=== PATIENT | female | born 1990 | race American Indian/Alaskan Native ===

== ENCOUNTER 2019-07-02 12:03 | Emergency (ER) | payer OTHER ==
[~2019-07-02] VITALS: Ht 144.8 cm; Wt 44.5 kg
[~2019-07-02 12:03] MED LIST: Bactrim Ds Tab1 EACH PO; KETO10 PO; Norco 5-325 Ta1 EACH PO; ONDA4ODT MM; TAMS.4ER PO
[2019-07-02] MEDS ORDERED: FAMO20 PO (14:46)
[2019-07-02] MEDS ORDERED: PRAMIPEXOLE0.125 M1 PO (14:47)
[2019-07-02 15:40] LABS: Source, Urine Clean Catch
[2019-07-02 15:46] LABS: Bilirubin, Urine Neg (Neg); Blood, Urine 4+ (Neg); Glucose Qualitative, Urine Neg (Neg); Ketones, Urine 1+ (Neg); Leukocyte Esterase, Urine 3+ (Neg); Nitrite, Urine Neg (Neg); Protein, Urine 3+ (Neg); Specific Gravity, Urine 1.015 (1.003-1.022); Urobilinogen, Urine NORM (Normal)
[2019-07-02 15:57] LABS: Appearance, Urine Turbid (Clear); Color, Urine Other (P-Yellow)
[2019-07-02 15:58] LABS: BASOPHILS ABSOLUTE AUTO 0.03 K/mm3 (0.00-0.23); BASOPHILS PERCENT AUTO 0 % (0-2); EOSINOPHILS ABSOLUTE AUTO 0.08 K/mm3 (0.00-0.68); EOSINOPHILS PERCENT AUTO 1 % (0-6); Hematocrit 41.8 % (33.0-51.0); Hemoglobin 13.4 g/dL (11.5-16.0); IMMATURE GRAN ABSOLUTE AUTO 0.01 K/mm3 (0.00-0.10); IMMATURE GRAN PERCENT AUTO 0 % (0-1); LYMPHOCYTES ABSOLUTE AUTO 2.47 K/mm3 (0.84-5.20); LYMPHOCYTES PERCENT AUTO 34 % (21-46); MONOCYTES PERCENT AUTO 6 % (4-13); Mean Corpuscular HGB 29.5 pg (26.0-34.0); Mean Corpuscular HGB Conc 32.1 g/dL (31.5-36.5); Mean Corpuscular Volume 92 fL (80-100); NEUTROPHILS ABSOLUTE AUTO 4.25 K/mm3 (1.96-9.15); NEUTROPHILS PERCENT AUTO 59 % (41-73); Platelet Count 307 K/mm3 (150-400); RDW Coefficient Variation 14.5 % (11.7-14.2); RDW Standard Deviation 49.2 fL (35.1-46.3); Red Blood Cell Count 4.55 M/mm3 (3.80-5.20); White Blood Cell Count 7.24 K/mm3 (4.00-11.30)
[2019-07-02 16:02] LABS: Amorphous Heavy (0-Heavy); Bacteria Many /hpf; Squamous Epithelial Cells Not Seen /hpf (Few); Triple Phosphate Crystals Few /hpf
[2019-07-02 16:11] LABS: Alanine Aminotransfer (ALT/SGP 22 U/L (12-78); Albumin, Blood 3.9 g/dL (3.4-5.0); Alk Phos 64 U/L (50-136); Anion Gap 11 mmol/L (6-16); Aspartate Aminotrans (AST/SGOT 17 U/L (12-37); Bilirubin, Total 0.4 mg/dL (0.1-1.0); Blood Urea Nitrogen 18 mg/dL (8-24); Bun/Creatinine Ratio 31.1 (12.0-20.0); CO2, Blood 18 mmol/L (21-32); Calcium, Blood 9.2 mg/dL (8.5-10.1); Chloride, Blood 111 mmol/L (98-108); Creatinine, Blood 0.58 mg/dL (0.40-1.00); Globulin, Blood 4.1 g/dL (2.2-4.0); Glomerular Filtration Rate >60 (60-); Glucose, Blood 85 mg/dL (70-99); Potassium, Blood 4.3 mmol/L (3.5-5.5); Sodium, Blood 140 mmol/L (136-145)
[2019-07-02] MEDS ORDERED: Toradol10 MG PO (16:52)
== END 2019-07-02 17:04 | disposition home or self-care (01) ==
LOC: ER 12:03
PROVIDERS: Physician Assistant
DX: R10.9 Unspecified abdominal pain (principal); G80.9 Cerebral palsy, unspecified; Z87.442 Personal history of urinary calculi; Z79.899 Other long term (current) drug therapy
CPT/HCPCS: 36415; 80053; 81001; 81025; 83690; 85025; 87086; 99284

== ENCOUNTER 2019-07-14 12:20 | Emergency (ER) | payer OTHER ==
[~2019-07-14] VITALS: Wt 43.1 kg
[~2019-07-14 12:20] MED LIST changes: +FAMO20 PO; +PRAMIPEXOLE0.125 M1 PO; +Toradol10 MG PO
[2019-07-14 12:51] LABS: BASOPHILS ABSOLUTE AUTO 0.02 K/mm3 (0.00-0.23); BASOPHILS PERCENT AUTO 0 % (0-2); EOSINOPHILS ABSOLUTE AUTO 0.08 K/mm3 (0.00-0.68); EOSINOPHILS PERCENT AUTO 1 % (0-6); Hematocrit 42.1 % (33.0-51.0); Hemoglobin 14.1 g/dL (11.5-16.0); IMMATURE GRAN ABSOLUTE AUTO 0.03 K/mm3 (0.00-0.10); IMMATURE GRAN PERCENT AUTO 0 % (0-1); LYMPHOCYTES ABSOLUTE AUTO 3.22 K/mm3 (0.84-5.20); LYMPHOCYTES PERCENT AUTO 38 % (21-46); MONOCYTES ABSOLUTE AUTO 0.63 K/mm3 (0.16-1.47); MONOCYTES PERCENT AUTO 8 % (4-13); Mean Corpuscular HGB 30.3 pg (26.0-34.0); Mean Corpuscular HGB Conc 33.5 g/dL (31.5-36.5); Mean Corpuscular Volume 90 fL (80-100); NEUTROPHILS PERCENT AUTO 53 % (41-73); Platelet Count 367 K/mm3 (150-400); RDW Coefficient Variation 13.9 % (11.7-14.2); RDW Standard Deviation 46.2 fL (35.1-46.3); Red Blood Cell Count 4.66 M/mm3 (3.80-5.20); White Blood Cell Count 8.38 K/mm3 (4.00-11.30)
[2019-07-14 13:18] LABS: Alanine Aminotransfer (ALT/SGP 20 U/L (12-78); Albumin, Blood 3.9 g/dL (3.4-5.0); Alk Phos 66 U/L (50-136); Anion Gap 7 mmol/L (6-16); Aspartate Aminotrans (AST/SGOT 12 U/L (12-37); Bilirubin, Total 0.7 mg/dL (0.1-1.0); Blood Urea Nitrogen 15 mg/dL (8-24); Bun/Creatinine Ratio 25.4 (12.0-20.0); CO2, Blood 23 mmol/L (21-32); Calcium, Blood 9.2 mg/dL (8.5-10.1); Chloride, Blood 111 mmol/L (98-108); Creatinine, Blood 0.59 mg/dL (0.40-1.00); Globulin, Blood 4.1 g/dL (2.2-4.0); Glomerular Filtration Rate >60 (60-); Glucose, Blood 78 mg/dL (70-99); Potassium, Blood 3.9 mmol/L (3.5-5.5); Sodium, Blood 141 mmol/L (136-145)
[2019-07-14 13:27] LABS: Source, Urine Clean Catch
[2019-07-14 13:36] LABS: Bilirubin, Urine Neg (Neg); Blood, Urine 4+ (Neg); Glucose Qualitative, Urine Neg (Neg); Ketones, Urine 1+ (Neg); Leukocyte Esterase, Urine 3+ (Neg); Nitrite, Urine Neg (Neg); Protein, Urine 3+ (Neg); Urobilinogen, Urine NORM (Normal)
[2019-07-14 13:42] LABS: Appearance, Urine Turbid (Clear); Color, Urine Amber (P-Yellow)
[2019-07-14 13:50] LABS: Amorphous Heavy (0-Heavy); Bacteria Mod /hpf; Red Blood Cells, Urine TNTC /hpf (0-2); Squamous Epithelial Cells Rare /hpf (Few); White Blood Cells, Urine 25-50 /hpf (0-5)
[2019-07-14 13:51] LABS: Triple Phosphate Crystals Few /hpf
[2019-07-14] MEDS ORDERED: Norco 5-325 Ta1 EACH PO (14:57)
[2019-07-14] MEDS ORDERED: ONDA4ODT MM (14:57)
== END 2019-07-14 15:18 | disposition home or self-care (01) ==
LOC: ER 12:20
PROVIDERS: Emergency Medicine
DX: N20.0 Calculus of kidney (principal); G80.9 Cerebral palsy, unspecified; K82.4 Cholesterolosis of gallbladder; Z79.899 Other long term (current) drug therapy
CPT/HCPCS: 36415; 76705; 80053; 81001; 83690; 85025; 87086; 96361; 96374; 99284-25; C9113; J7030

== ENCOUNTER 2020-02-08 16:38 | Inpatient (IN) | payer OTHER ==
[~2020-02-08] VITALS: Ht 152.4 cm; Wt 35.8 kg
[2020-02-08 17:00] LABS: Appearance, Urine Turbid (Clear); Bilirubin, Urine Neg (Neg); Blood, Urine 5+ (Neg); Color, Urine Brown (P-Yellow); Glucose Qualitative, Urine Neg (Neg); Ketones, Urine 1+ (Neg); Leukocyte Esterase, Urine 3+ (Neg); Nitrite, Urine Neg (Neg); Protein, Urine 4+ (Neg); Specific Gravity, Urine 1.015 (1.003-1.022); Urobilinogen, Urine 1+ (Normal)
[2020-02-08 17:11] LABS: BASOPHILS ABSOLUTE AUTO 0.03 K/mm3 (0.00-0.23); BASOPHILS PERCENT AUTO 0 % (0-2); EOSINOPHILS ABSOLUTE AUTO 0.03 K/mm3 (0.00-0.68); EOSINOPHILS PERCENT AUTO 0 % (0-6); Hematocrit 36.9 % (33.0-51.0); Hemoglobin 11.7 g/dL (11.5-16.0); IMMATURE GRAN ABSOLUTE AUTO 0.05 K/mm3 (0.00-0.10); IMMATURE GRAN PERCENT AUTO 0 % (0-1); LYMPHOCYTES ABSOLUTE AUTO 1.44 K/mm3 (0.84-5.20); LYMPHOCYTES PERCENT AUTO 12 % (21-46); MONOCYTES ABSOLUTE AUTO 1.19 K/mm3 (0.16-1.47); MONOCYTES PERCENT AUTO 10 % (4-13); Mean Corpuscular HGB 28.4 pg (26.0-34.0); Mean Corpuscular HGB Conc 31.7 g/dL (31.5-36.5); Mean Corpuscular Volume 90 fL (80-100); Mean Platelet Volume 8.7 fL (9.1-12.4); NEUTROPHILS ABSOLUTE AUTO 9.13 K/mm3 (1.96-9.15); NEUTROPHILS PERCENT AUTO 77 % (41-73); Platelet Count 468 K/mm3 (150-400); RDW Coefficient Variation 13.1 % (11.7-14.2); RDW Standard Deviation 43.2 fL (35.1-46.3); Red Blood Cell Count 4.12 M/mm3 (3.80-5.20); White Blood Cell Count 11.87 K/mm3 (4.00-11.30)
[2020-02-08 17:16] LABS: Amorphous Heavy (0-Heavy); Bacteria Many /hpf; Squamous Epithelial Cells Not Seen /hpf (Few); White Blood Cells, Urine 25-50 /hpf (0-5)
[2020-02-08 17:32] LABS: Alanine Aminotransfer (ALT/SGP 24 U/L (12-78); Albumin/Globulin Ratio 0.6 (0.8-1.8); Alk Phos 96 U/L (50-136); Anion Gap 12 mmol/L (6-16); Aspartate Aminotrans (AST/SGOT 19 U/L (12-37); Bilirubin, Total 0.7 mg/dL (0.1-1.0); Blood Urea Nitrogen 22 mg/dL (8-24); Bun/Creatinine Ratio 35.8 (12.0-20.0); CO2, Blood 17 mmol/L (21-32); Calcium, Blood 9.7 mg/dL (8.5-10.1); Chloride, Blood 110 mmol/L (98-108); Creatinine, Blood 0.62 mg/dL (0.40-1.00); Globulin, Blood 4.8 g/dL (2.2-4.0); Glomerular Filtration Rate >60 (60-); Glucose, Blood 84 mg/dL (70-99); Potassium, Blood 3.5 mmol/L (3.5-5.5); Sodium, Blood 139 mmol/L (136-145); Total Protein, Blood 7.8 g/dL (6.4-8.2)
[2020-02-08] MEDS ORDERED: CLONAZEPAM1 MG PO (18:13)
[2020-02-08] MEDS ORDERED: POTA10T PO (18:14)
[2020-02-08] MEDS ORDERED: OMEP20ER PO (18:14)
--- NOTE | 2020-02-09 04:18 | NUR ---
SHIFT SUMMARY PT ARRIVED TO UNIT FROM ED VIA STRETCHER @ 2144. TRANSFERRED FROM STRETCHER TO BED WITH SLIDER SHEET AND 3 STAFF ASSIST. PT IS A&O X4, IS SLOW TO RESPOND BUT IS A GOOD HISTORIAN. CALLS APPROPRIATELY. PT HAS UROSTOMY IN PLACE, BROWN TINGED, TURBID URINE DRAINING. MEDICATED FOR PAIN X2 PER APR. KPAD IN PLACE, PT STATES THAT IT HELPS WITH THE PAIN WELL. PT'S MOTHER'S PHONE NUMBERS ON PT BOARD AND ALSO IN PT PAPER CHART. PT IS LAYING IN BED WITH EYES CLOSED, EVEN AND UNLABORED RESPIRATIONS. BED IN LOWERED POSITION WITH ALARM IN PLACE, SIDE RAILS UP X2 FOR SAFETY. SOFT TOUCH CALL LIGHT AND PERSONAL ITEMS WITH IN REACH. NO APPARENT NEEDS OR DISTRESS AT THIS TIME, WILL CONTINUE TO MONITOR UNTIL REPORT GIVEN TO DAY RN.
[2020-02-09 06:03] LABS: BASOPHILS ABSOLUTE AUTO 0.03 K/mm3 (0.00-0.23); BASOPHILS PERCENT AUTO 0 % (0-2); EOSINOPHILS ABSOLUTE AUTO 0.04 K/mm3 (0.00-0.68); EOSINOPHILS PERCENT AUTO 0 % (0-6); Hematocrit 27.6 % (33.0-51.0); Hemoglobin 8.6 g/dL (11.5-16.0); IMMATURE GRAN ABSOLUTE AUTO 0.04 K/mm3 (0.00-0.10); IMMATURE GRAN PERCENT AUTO 0 % (0-1); LYMPHOCYTES ABSOLUTE AUTO 1.81 K/mm3 (0.84-5.20); LYMPHOCYTES PERCENT AUTO 20 % (21-46); MONOCYTES ABSOLUTE AUTO 0.97 K/mm3 (0.16-1.47); MONOCYTES PERCENT AUTO 11 % (4-13); Mean Corpuscular HGB 28.4 pg (26.0-34.0); Mean Corpuscular HGB Conc 31.2 g/dL (31.5-36.5); Mean Corpuscular Volume 91 fL (80-100); NEUTROPHILS ABSOLUTE AUTO 6.22 K/mm3 (1.96-9.15); NEUTROPHILS PERCENT AUTO 68 % (41-73); Platelet Count 412 K/mm3 (150-400); RDW Coefficient Variation 13.2 % (11.7-14.2); RDW Standard Deviation 43.9 fL (35.1-46.3); Red Blood Cell Count 3.03 M/mm3 (3.80-5.20); White Blood Cell Count 9.11 K/mm3 (4.00-11.30)
[2020-02-09 06:26] LABS: Alanine Aminotransfer (ALT/SGP 20 U/L (12-78); Albumin, Blood 2.1 g/dL (3.4-5.0); Albumin/Globulin Ratio 0.5 (0.8-1.8); Alk Phos 77 U/L (50-136); Anion Gap 10 mmol/L (6-16); Aspartate Aminotrans (AST/SGOT 13 U/L (12-37); Bilirubin, Total 0.6 mg/dL (0.1-1.0); Blood Urea Nitrogen 14 mg/dL (8-24); Bun/Creatinine Ratio 28.3 (12.0-20.0); CO2, Blood 17 mmol/L (21-32); Calcium, Blood 8.4 mg/dL (8.5-10.1); Chloride, Blood 115 mmol/L (98-108); Creatinine, Blood 0.49 mg/dL (0.40-1.00); Globulin, Blood 3.9 g/dL (2.2-4.0); Glomerular Filtration Rate >60 (60-); Glucose, Blood 108 mg/dL (70-99); Potassium, Blood 2.8 mmol/L (3.5-5.5); Sodium, Blood 142 mmol/L (136-145)
[2020-02-09] MEDS ORDERED: PRAM.125 PO (15:34)
--- NOTE | 2020-02-09 17:57 | NUR ---
PATIENT IS A/OX4, VERY PLEASANT AND COOPERATIVE WITH CARE. VSS, ON RA. HX OF CEREBRAL PALSEY, PATIENT IS A Q2 TURN. GROSS MOTOR MOVEMENT OF BUE, DOES REQUIRE ASSISTANCE WITH MEALS. K+ 2.8 THIS AM AND WAS REPLACED. 22G IV TO L AC WNL AND NOW SL. UROSTOMY TO RLQ. PATIENT REPORTING BILATERAL FLANK PAIN, FENTANYL AND TYLENOL GIVEN TO TREAT. SKIN INTACT. SR ON TELE IN THE 90'S. PATIENT CALLS APPROPRIATELY FOR ASSISTANCE.
--- NOTE | 2020-02-10 04:26 | NUR ---
SHIFT SUMMARY MEDICATED PT FOR PAIN X2 THIS SHIFT. OTHERWISE NO OTHER COMPLAINTS. PT SLEPT WELL T/O NIGHT ONLY WAKING UP WHEN PAINFUL. TURN Q2, PT IS ABLE TO VERBALIZE WHEN SHE WOULD LIKE TO BE TURNED. UROSTOMY DRAINING CLOUDY JEFFREY URINE. KPAD IN PLACE TO HELP REDUCE PAIN. PT IS COOPERATIVE WITH CARE. PT IS LAYING IN BED ON R SIDE, WITH EYE MASK ON, EVEN AND UNLABORED RESPIRATIONS. BED IN LOWERED POSITION WITH HOB ELEVATED AND ALARM IN PLACE. SOFT TOUCH CALL LIGHT AND PERSONAL ITEMS WITH IN REACH. NO APPARENT NEEDS OR DISTRESS AT THIS TIME, WILL CONTINUE TO MONITOR UNTIL REPORT GIVEN TO DAY RN.
[2020-02-10 09:40] LABS: Albumin, Blood 2.5 g/dL (3.4-5.0); Anion Gap 9 mmol/L (6-16); Blood Urea Nitrogen 9 mg/dL (8-24); Bun/Creatinine Ratio 18.5 (12.0-20.0); CO2, Blood 17 mmol/L (21-32); Chloride, Blood 116 mmol/L (98-108); Creatinine, Blood 0.49 mg/dL (0.40-1.00); Glomerular Filtration Rate >60 (60-); Glucose, Blood 130 mg/dL (70-99); Magnesium, Blood 1.8 mg/dL (1.6-2.4); Phosphorus, Blood 2.5 mg/dL (2.5-4.9); Potassium, Blood 3.4 mmol/L (3.5-5.5); Sodium, Blood 142 mmol/L (136-145)
--- NOTE | 2020-02-10 17:35 | NUR ---
SHIFT SUMMARY NO ACUTE CHANGES T/O SHIFT, A&OX4, CALM AND COOPERATIVE WITH CARE. PT WAS PLEASANT T/O SHIFT. PT REPORTED PAIN TWICE THIS SHIFT AND WAS TREATED PRN PER EMAR AND SCHEDULED. PAIN TOLERATED WELL WITH ADMINISTERED MEDICATIONS AND USE OF K PAD. PT STARTED ON CIPRO ABX THIS SHIFT, CURRENTLY RUNNING. PT IS ON TELE, REMAINED IN SINUS RHYTHM T/O SHIFT. PT IS BEDREST, SKIN APPEARS C/D/I. SOME REDNESS NOTED ON L SHOULDER, PT REPOSITION OFF OF SHOULDER. UROSTOMY IN PLACE AND INTACT, URINE IS PINK TINGED WITH SOME RESIDUAL. PT IS CURRENTLY IS BEING FED DINNER BY [place] ATTENDANT. CALL LIGHT IS WITHIN REACH.
[2020-02-11 06:04] LABS: Albumin, Blood 2.5 g/dL (3.4-5.0); Anion Gap 9 mmol/L (6-16); Blood Urea Nitrogen 15 mg/dL (8-24); Bun/Creatinine Ratio 27.1 (12.0-20.0); CO2, Blood 19 mmol/L (21-32); Calcium, Blood 9.3 mg/dL (8.5-10.1); Chloride, Blood 113 mmol/L (98-108); Creatinine, Blood 0.55 mg/dL (0.40-1.00); Glomerular Filtration Rate >60 (60-); Glucose, Blood 100 mg/dL (70-99); Phosphorus, Blood 3.8 mg/dL (2.5-4.9); Potassium, Blood 3.4 mmol/L (3.5-5.5); Sodium, Blood 141 mmol/L (136-145)
--- NOTE | 2020-02-11 06:43 | NUR ---
SHIFT SUMMARY PT IS A/O X4. SPEECH SLIGHTLY SLURRED/DIFFICULT TO UNDERSTAND D/T MEDICAL HX. 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 PT HAS BEEN REPOSITIONED Q2/PRN OVERNIGHT. PO INTAKE ENCOURAGE AND PT ASSISTED WITH DRINKING FLUIDS. TAKING PILLS WHOLE. UROSTOMY IN PLACE. URINE HAS BEEN YELLOW WITH PINK TINGE AND CLOUDY. PT REPORTS FLANK PAIN. PAIN MANAGED WITH 50MCG FENTANYL PER ORDERS. PT RESTING IN BED WITH SOFT TOUCH CALL LIGHT IN REACH.
--- NOTE | 2020-02-11 17:42 | NUR ---
SHIFT SUMMARY PT AWAKE DURING SHIFT REPORT. HX OF CEREBRAL PALSY; SPEECH IS MOSTLY GARBLED AND DIFFICULT TO UNDERSTAND. PT WITH UROSTOMY; ADMITTED FOR UTI AND URETERAL STONE. UROSTOMY PATENT AND DRAINING PINK TINGED URINE AT START OF SHIFT. TONIGHT URINE IS TURNING LT CRANBERRY COLORED. DR FAUSTIN IN TO SEE PT THIS AM. NEW ORDERS PLACED. PAIN MEDICATION ADJUSTED. IV SITE TO LAC BECAME DIFFICULT TO INFUSE. NEW IV PG TO VANITA PLACED TODAY. CURRENTLY INFUSING PER EMAR. IVF'S TO ASSIST IN FLUSHING STONE. PT WITH CONTRACTURES TO ALL EXTREMITIES. GROSS MOTOR SKILLS TO BUE'S. PT'S MOM IN THIS AFTERNOON TO VISIT. PT'S MOM BURNED R SIDE OF PT'S NECK WITH CURLING IRON WHILE ATTEMPTING TO CURL PT'S HAIR, PER MELISSA ELENA AT 1500 TODAY. 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 LIKES [employer]. MEDS WHOLE WITH APPLESAUCE. PT AWAKE PLAYING ON COMPUTER AT THIS TIME. NO C/O. PLEASANT AND SMILING. TOUCH CALL LT IN REACH AND ABLE TO USE.
--- NOTE | 2020-02-12 04:45 | NUR ---
SHIFT SUMMARY A/O, ABLE TO MAKE NEEDS KNOWN. COOPERATIVE WITH CARE. CALLS AND ANSWERS QUESTIONS APPROPRIATELY. C/O PAIN/DISCOMFORT RATED 3/10 TO R SIDE; MEDICATED PER EMAR. ALSO REQUESTED SOMETHING FOR SLEEP. MOTHER CALLED EARLIER IN THE DAY TO SPEAK TO RN ABOUT PATIENT NOT GETTING MEDICATION FOR SLEEP. EXPLAINED THAT THIS RN WOULD GIVE HER THE KLONOPIN THAT IS PRN. NO ACUTE CHANGE NOTED OVERNIGHT. CONTINUES TO INFUSE FLUIDS WITHOUT COMPLICATIONS. VSS/AFEBRILE. UROSTOMY DRAINING WITH SEDIMENT NOTED; NO STONES THUS FAR. BED REMAINED IN LOWEST POSITION. CALL LIGHT AND BELONGINGS WITHIN REACH. REPORT TO ONCOMING RN.
[2020-02-12 09:08] LABS: Albumin, Blood 2.6 g/dL (3.4-5.0); Anion Gap 9 mmol/L (6-16); Blood Urea Nitrogen 18 mg/dL (8-24); Bun/Creatinine Ratio 32.4 (12.0-20.0); CO2, Blood 17 mmol/L (21-32); Calcium, Blood 9.1 mg/dL (8.5-10.1); Chloride, Blood 116 mmol/L (98-108); Creatinine, Blood 0.56 mg/dL (0.40-1.00); Glomerular Filtration Rate >60 (60-); Glucose, Blood 118 mg/dL (70-99); Phosphorus, Blood 3.3 mg/dL (2.5-4.9); Potassium, Blood 4.1 mmol/L (3.5-5.5); Sodium, Blood 142 mmol/L (136-145)
[2020-02-12] MEDS ORDERED: ACET500 PO (13:35)
[2020-02-12] MEDS ORDERED: SENN187 PO (13:36)
[2020-02-12] MEDS ORDERED: VISBIOME PROBI1 EACH PO (13:37)
[2020-02-12] MEDS ORDERED: CIPR500 PO (13:38)
[2020-02-12] MEDS ORDERED: IBUP400 (13:39)
--- NOTE | 2020-02-12 18:20 | NUR ---
SHIFT SUMMARY PT RESTING QUIETLY AT START OF SHIFT. WOKE EASILY FOR CARE. PLEASANT AND CO-OP. UROSTOMY OUTPUT YELLOW TODAY. NO LONGER PINK TINGED. DR FAUSTIN IN TO SEE PT. D/C ORDERS DISCUSSED WITH PT. DR FAUSTIN DISCUSSED PLAN OF CARE WITH PT'S MOM. PT ENCOURAGED TO DRINK MORE FLUIDS AT HOME; WATER AND JUICE, NO SPORTS DRINKS. PT ATE AND DRANK WELL FOR BREAKFAST AND LUNCH. GOOD URINE OUTPUT. BED BATH GIVEN BEFORE GETTING DRESSED TO GO HOME. PT'S MOM HERE TO ASSIST WITH D/C AND TX PT TO W/C. PT'S MOM ALSO TX TO VEHICLE TO GO HOME. D/C INSTRUCTIONS DISCUSSED WITH PT'S MOM AT TIME OF D/C. MEDS FAXED TO [facility] PER CHART. PT'S MOM LATER REQUESTED THEM FAXED TO [facility].
[2020-05-12] MEDS ORDERED: CEPH500 PO (17:33)
[2020-05-12] MEDS ORDERED: IBUP600 PO (17:33)
[2020-07-19] MEDS ORDERED: PRAM.125 PO (15:57)
[2020-07-19] MEDS ORDERED: ONDA4 PO (15:58)
[2020-07-19] MEDS ORDERED: Keflex500 MG PO (18:00)
== END 2020-02-12 15:24 | disposition home or self-care (01) | DRG 698 ==
LOC: ER 16:38 → MEDS 21:41
PROVIDERS: Emergency Medicine; Internal Medicine; ADMIT Internal Medicine
DX: T83.598A Infection and inflammatory reaction due to other prosthetic device, implant and graft in urinary system, initial encounter (principal); A41.81 Sepsis due to Enterococcus; N12 Tubulo-interstitial nephritis, not specified as acute or chronic; N13.30 Unspecified hydronephrosis; B96.1 Klebsiella pneumoniae [K. pneumoniae] as the cause of diseases classified elsewhere; K21.9 Gastro-esophageal reflux disease without esophagitis; F41.9 Anxiety disorder, unspecified; E87.6 Hypokalemia; G80.9 Cerebral palsy, unspecified; N20.0 Calculus of kidney; Z99.3 Dependence on wheelchair
CPT/HCPCS: 36415; 74176; 74178; 80053; 80069; 81001; 83605; 83735; 85025; 87077; 87086; 87186; 96365; 96375; 96376; 99285-25; A9270; C1751; J0696; J0744; J1650; J1885; J3010; J3480; J7030; J7050; Q9967

== ENCOUNTER 2020-03-20 12:00 | Inpatient (IN) | payer OTHER ==
[~2020-03-20] VITALS: Ht 147.3 cm; Wt 40.8 kg
[~2020-03-20 12:00] MED LIST changes: +ACET500 PO; +CIPR500 PO; +CLONAZEPAM1 MG PO; +IBUP400; +OMEP20ER PO; +POTA10T PO; +PRAM.125 PO; +SENN187 PO; +VISBIOME PROBI1 EACH PO
[2020-03-20 12:59] LABS: BASOPHILS ABSOLUTE AUTO 0.03 K/mm3 (0.00-0.23); BASOPHILS PERCENT AUTO 0 % (0-2); EOSINOPHILS ABSOLUTE AUTO 0.16 K/mm3 (0.00-0.68); EOSINOPHILS PERCENT AUTO 2 % (0-6); Hematocrit 40.3 % (33.0-51.0); Hemoglobin 13.4 g/dL (11.5-16.0); IMMATURE GRAN ABSOLUTE AUTO 0.02 K/mm3 (0.00-0.10); IMMATURE GRAN PERCENT AUTO 0 % (0-1); LYMPHOCYTES ABSOLUTE AUTO 1.94 K/mm3 (0.84-5.20); LYMPHOCYTES PERCENT AUTO 23 % (21-46); MONOCYTES ABSOLUTE AUTO 0.67 K/mm3 (0.16-1.47); MONOCYTES PERCENT AUTO 8 % (4-13); Mean Corpuscular HGB 28.8 pg (26.0-34.0); Mean Corpuscular HGB Conc 33.3 g/dL (31.5-36.5); Mean Corpuscular Volume 87 fL (80-100); Mean Platelet Volume 8.9 fL (9.1-12.4); NEUTROPHILS ABSOLUTE AUTO 5.65 K/mm3 (1.96-9.15); NEUTROPHILS PERCENT AUTO 67 % (41-73); Platelet Count 329 K/mm3 (150-400); RDW Coefficient Variation 13.4 % (11.7-14.2); RDW Standard Deviation 42.5 fL (35.1-46.3); Red Blood Cell Count 4.66 M/mm3 (3.80-5.20); White Blood Cell Count 8.47 K/mm3 (4.00-11.30)
[2020-03-20 13:20] LABS: Alanine Aminotransfer (ALT/SGP 23 U/L (12-78); Albumin, Blood 3.5 g/dL (3.4-5.0); Alk Phos 76 U/L (50-136); Anion Gap 8 mmol/L (6-16); Aspartate Aminotrans (AST/SGOT 14 U/L (12-37); Bilirubin, Total 0.4 mg/dL (0.1-1.0); Blood Urea Nitrogen 19 mg/dL (8-24); Bun/Creatinine Ratio 29.8 (12.0-20.0); CO2, Blood 21 mmol/L (21-32); Calcium, Blood 8.9 mg/dL (8.5-10.1); Chloride, Blood 112 mmol/L (98-108); Creatinine, Blood 0.64 mg/dL (0.40-1.00); Globulin, Blood 3.6 g/dL (2.2-4.0); Glomerular Filtration Rate >60 (60-); Glucose, Blood 82 mg/dL (70-99); Potassium, Blood 3.9 mmol/L (3.5-5.5); Sodium, Blood 141 mmol/L (136-145); Total Protein, Blood 7.1 g/dL (6.4-8.2)
[2020-03-20 13:21] LABS: Source, Urine Urostomy Bag
[2020-03-20 13:28] LABS: Appearance, Urine Turbid (Clear); Bilirubin, Urine Neg (Neg); Blood, Urine 5+ (Neg); Color, Urine Yellow (P-Yellow); Glucose Qualitative, Urine Neg (Neg); Ketones, Urine Neg (Neg); Leukocyte Esterase, Urine 3+ (Neg); Nitrite, Urine Neg (Neg); Protein, Urine 3+ (Neg); Specific Gravity, Urine 1.015 (1.003-1.022); Urobilinogen, Urine NORM (Normal)
[2020-03-20 13:39] LABS: Bacteria Many /hpf; Red Blood Cells, Urine TNTC /hpf (0-2); Squamous Epithelial Cells Few /hpf (Few); Triple Phosphate Crystals Mod /hpf; White Blood Cells, Urine TNTC /hpf (0-5)
[2020-03-20] MEDS ORDERED: PROM12.5S PR (18:56)
--- NOTE | 2020-03-20 18:58 | NUR ---
ARRIVED TO UNIT AT 1850. ORIENTED TO ROOM, SOFT CALL LIGHT PROVIDED. PATIENT MADE COMFORTABLE.
[2020-03-21 05:34] LABS: BASOPHILS ABSOLUTE AUTO 0.03 K/mm3 (0.00-0.23); BASOPHILS PERCENT AUTO 1 % (0-2); EOSINOPHILS ABSOLUTE AUTO 0.19 K/mm3 (0.00-0.68); EOSINOPHILS PERCENT AUTO 3 % (0-6); Hematocrit 36.6 % (33.0-51.0); Hemoglobin 11.8 g/dL (11.5-16.0); IMMATURE GRAN ABSOLUTE AUTO 0.03 K/mm3 (0.00-0.10); IMMATURE GRAN PERCENT AUTO 1 % (0-1); LYMPHOCYTES ABSOLUTE AUTO 2.76 K/mm3 (0.84-5.20); LYMPHOCYTES PERCENT AUTO 44 % (21-46); MONOCYTES PERCENT AUTO 6 % (4-13); Mean Corpuscular HGB 28.6 pg (26.0-34.0); Mean Corpuscular HGB Conc 32.2 g/dL (31.5-36.5); Mean Corpuscular Volume 89 fL (80-100); Mean Platelet Volume 8.9 fL (9.1-12.4); NEUTROPHILS ABSOLUTE AUTO 2.84 K/mm3 (1.96-9.15); NEUTROPHILS PERCENT AUTO 45 % (41-73); Platelet Count 305 K/mm3 (150-400); RDW Coefficient Variation 13.6 % (11.7-14.2); RDW Standard Deviation 44.1 fL (35.1-46.3); Red Blood Cell Count 4.13 M/mm3 (3.80-5.20); White Blood Cell Count 6.25 K/mm3 (4.00-11.30)
[2020-03-21 05:58] LABS: Influenza A, PCR NEGATIVE (NEGATIVE); Influenza B, PCR NEGATIVE (NEGATIVE); Resp Syncytial Virus, PCR NEGATIVE (NEGATIVE); SARS-Cov-2 (COVID-19) PCR, MMC NEGATIVE (NEGATIVE)
[2020-03-21 06:07] LABS: Anion Gap 6 mmol/L (6-16); Blood Urea Nitrogen 15 mg/dL (8-24); Bun/Creatinine Ratio 27.2 (12.0-20.0); CO2, Blood 21 mmol/L (21-32); Calcium, Blood 8.9 mg/dL (8.5-10.1); Chloride, Blood 116 mmol/L (98-108); Creatinine, Blood 0.55 mg/dL (0.40-1.00); Glomerular Filtration Rate >60 (60-); Glucose, Blood 75 mg/dL (70-99); Potassium, Blood 3.9 mmol/L (3.5-5.5); Sodium, Blood 143 mmol/L (136-145)
--- NOTE | 2020-03-21 06:37 | NUR ---
SHIFT SUMMARY A/O, ABLE TO MAKE NEEDS KNOWN. SPEECH DIFFICULT AT TIMES. COOPERATIVE WITH CARE. CALLS AND ANSWERS QUESTIONS APPROPRIATELY. C/O PAIN/DISCOMFORT TO R FLANK. UROSTOMY DRAINING WELL; MUCOUS SEDIMENT, NO STONES OF YET. PRE-PROCEDURE COVID SCREEN COMPLETED AND NEGATIVE. WILL HAVE A LOOPOGRAM WITH DR. ARZATE THIS DAY. HAS BEEN NPO EXCEPT MEDS. VSS/AFEBRILE AT THIS TIME. NS /c K+ RUNNING WITHOUT COMPLICATIONS TO LFA IV. NO ACUTE CHANGES NOTED OVERNGIHT. APPEARED TO REST. BED REMAINED IN LOWEST POSITION. TOUCH CALL LIGHT IN REACH. CONTINUE WITH CURRENT PLAN OF CARE. REPORT TO ONCOMING RN.
--- NOTE | 2020-03-21 11:31 | NUR ---
[facility]SFERED TO [facility] MOTHER-DENA UPDATED.
--- NOTE | 2020-03-21 17:42 | NUR ---
INTAKE & OUTPUT FOR 03/21/20 0900: UROSTOMY OUTPUT 275ML 1051: UROSTOMY OUTPUT 250ML 1515: UROSTOMY OUTPUT 200ML & R NEPHROSTOMY OUTPUT 120 1700: LATE LUNCH- 100% & 360ML INTAKE 1747: 969ML IV FLUIDS INTAKE
--- NOTE | 2020-03-21 17:47 | NUR ---
SHIFT SUMMARY PT NPO THIS AM IN PREP FOR LOOPOGRAM BY DR. ARZATE. PT TAKEN FOR PROCEDURE & RETURNED WITH A NEPHROSTOMY TUBE TO THE R FLANK. ORDER FROM DR. ARZATE TO FLUSH TUBE TID. FIRST FLUSH COMPLETED AT 1700. DRAINAGE IN NEPHROSTOMY & OSTOMY BURGUNDY IN COLOR. PAIN MED GIVEN ONCE THIS SHIFT. PT & MOTHER UPDATED ON PROCEDURAL FINDINGS. VS REVIEWED. DR. ARZATE ASSISTED WITH COLLECTING A SPECIMEN OF THE NEPHROSTOMY OUTPUT. NO OTHER ACUTE CHANGES IN ASSESSMENT AT THIS TIME. PT ALERT & PLEASANT T/O SHIFT. UP IN BED. AWAITING DINNER. CALL LIGHT IN REACH.
[2020-03-22 05:20] LABS: BASOPHILS ABSOLUTE AUTO 0.02 K/mm3 (0.00-0.23); BASOPHILS PERCENT AUTO 0 % (0-2); EOSINOPHILS ABSOLUTE AUTO 0.07 K/mm3 (0.00-0.68); EOSINOPHILS PERCENT AUTO 1 % (0-6); Hematocrit 39.6 % (33.0-51.0); Hemoglobin 12.7 g/dL (11.5-16.0); IMMATURE GRAN ABSOLUTE AUTO 0.02 K/mm3 (0.00-0.10); IMMATURE GRAN PERCENT AUTO 0 % (0-1); LYMPHOCYTES ABSOLUTE AUTO 1.23 K/mm3 (0.84-5.20); LYMPHOCYTES PERCENT AUTO 15 % (21-46); MONOCYTES PERCENT AUTO 6 % (4-13); Mean Corpuscular HGB 28.3 pg (26.0-34.0); Mean Corpuscular HGB Conc 32.1 g/dL (31.5-36.5); Mean Corpuscular Volume 88 fL (80-100); Mean Platelet Volume 8.8 fL (9.1-12.4); NEUTROPHILS ABSOLUTE AUTO 6.66 K/mm3 (1.96-9.15); NEUTROPHILS PERCENT AUTO 78 % (41-73); Platelet Count 295 K/mm3 (150-400); RDW Coefficient Variation 13.5 % (11.7-14.2); Red Blood Cell Count 4.48 M/mm3 (3.80-5.20)
[2020-03-22 05:44] LABS: Anion Gap 9 mmol/L (6-16); Blood Urea Nitrogen 12 mg/dL (8-24); Bun/Creatinine Ratio 19.1 (12.0-20.0); CO2, Blood 20 mmol/L (21-32); Calcium, Blood 9.4 mg/dL (8.5-10.1); Chloride, Blood 112 mmol/L (98-108); Creatinine, Blood 0.63 mg/dL (0.40-1.00); Glomerular Filtration Rate >60 (60-); Glucose, Blood 95 mg/dL (70-99); Sodium, Blood 141 mmol/L (136-145)
--- NOTE | 2020-03-22 17:01 | NUR ---
PATIENT A/OX4, CHILD LIKE AFFECT. VERY PLEASANT AND COOPERATIVE WITH CARE. UROSTOMY WITH ADEQUATE U/O. NEPHROSTOMY FLUSHED X1 WITH 5ML NS. UROSTOMY BAG CHANGED, PAIN CONTROLLED WITH OXYCODONE AND FENTANYL. VSS, ON RA. LOW GRADE TEMP OF 100.7 THIS AM, MEDICATED X1 WITH TYLENOL. BEDBOUND, TURNING Q2 HOURS. 22G TO R AC WNL AND SL. SKIN INTACT. ABLE TO CALL USING SOFT TOUCH LIGHT.
[2020-03-23 05:25] LABS: BASOPHILS ABSOLUTE AUTO 0.02 K/mm3 (0.00-0.23); BASOPHILS PERCENT AUTO 0 % (0-2); EOSINOPHILS ABSOLUTE AUTO 0.12 K/mm3 (0.00-0.68); EOSINOPHILS PERCENT AUTO 2 % (0-6); Hematocrit 35.6 % (33.0-51.0); Hemoglobin 11.5 g/dL (11.5-16.0); IMMATURE GRAN ABSOLUTE AUTO 0.02 K/mm3 (0.00-0.10); IMMATURE GRAN PERCENT AUTO 0 % (0-1); LYMPHOCYTES ABSOLUTE AUTO 2.11 K/mm3 (0.84-5.20); LYMPHOCYTES PERCENT AUTO 35 % (21-46); MONOCYTES ABSOLUTE AUTO 0.55 K/mm3 (0.16-1.47); MONOCYTES PERCENT AUTO 9 % (4-13); Mean Corpuscular HGB 28.5 pg (26.0-34.0); Mean Corpuscular HGB Conc 32.3 g/dL (31.5-36.5); Mean Corpuscular Volume 88 fL (80-100); Mean Platelet Volume 8.8 fL (9.1-12.4); NEUTROPHILS PERCENT AUTO 53 % (41-73); Platelet Count 233 K/mm3 (150-400); RDW Coefficient Variation 13.3 % (11.7-14.2); RDW Standard Deviation 43.6 fL (35.1-46.3); Red Blood Cell Count 4.03 M/mm3 (3.80-5.20); White Blood Cell Count 6.02 K/mm3 (4.00-11.30)
[2020-03-23 05:39] LABS: Albumin, Blood 2.9 g/dL (3.4-5.0); Anion Gap 5 mmol/L (6-16); Blood Urea Nitrogen 14 mg/dL (8-24); Bun/Creatinine Ratio 25.9 (12.0-20.0); CO2, Blood 23 mmol/L (21-32); Calcium, Blood 8.8 mg/dL (8.5-10.1); Chloride, Blood 112 mmol/L (98-108); Creatinine, Blood 0.54 mg/dL (0.40-1.00); Glomerular Filtration Rate >60 (60-); Glucose, Blood 86 mg/dL (70-99); Phosphorus, Blood 3.1 mg/dL (2.5-4.9); Sodium, Blood 140 mmol/L (136-145)
--- NOTE | 2020-03-23 07:35 | NUR ---
SUMMARY PT HAD CONTINUED PAIN T/O SHIFT. PAIN MANAGED WELL PER EMAR. PT WAS ABLE TO SLEEP T/O SHIFT. PT HAD NO OTHER ISSUES NOTED. CALL LIGHT IN REACH.
--- NOTE | 2020-03-23 18:29 | NUR ---
PATIENT A/OX4, CHILD LIKE AFFECT. VERY PLEASANT AND COOPERATIVE. LOW GRADE TEMP AGAIN THIS SHIFT, TYLENOL GIVEN TO TREAT. PAIN CONTROLLED WITH OXYCODONE AND FENTANYL. PATIENT DENIES ANY NAUSEA, TOLERATING REGULAR DIET. PATIENT DOES REQUIRE ASSISTANCE WITH MEALS DUE TO BUE CONTRACTURES. UROSTOMY WITH ADEQUATE U/O. NEPRHOSTOMY DRAINAGE CLEARING AND DRESSING INTACT. FLUSHED WITH 5ML NS X1 THIS SHIFT. POSSIBLE DC SOON TOMORROW WITH HOME HEALTH.
--- NOTE | 2020-03-24 06:32 | NUR ---
SHIFT SUMMARY PT IS A 29 Y/O FEMALE, ADMITTED FOR HYDRONEPHROSIS WITH A RECENT R NEPHROSTOMY PLACEMENT. PT IS A&O X 3, WITH A HX OF CEREBRAL PALSY AND HAS A CHILD-LIKE AFFECT. SHE WAS MEDICATED 3X FOR R FLANK PAIN WITH PRN OXYCODONE. NO C/O NAUSEA OR SOB. VITAL SIGNS STABLE. PT RECEIVED NS + K @ 100 ML/HR. NO ACUTE CHANGES IN PT CONDITION NOTED DURING THE NIGHT. WILL CONTINUE TO MONITOR AND TREAT PER EMAR UNTIL HAND OFF TO DAY SHIFT RN.
--- NOTE | 2020-03-24 09:56 | NUR ---
CALLED DR ARZATE- DR MARTÍNEZ REQUESTED RN TO CALL DR ARZATE TO UUPDATE HIM ON PT STILL HAVING ELEVATED TEMPS DESPITE BEING ON IV CIPOR. SHOULD WE DO AN ULTRASOUND OR A LEUKOGRAM. LEFT A MESSAGE REQUESTING A CALL BACK.
--- NOTE | 2020-03-24 11:34 | NUR ---
SPOKE TO DR ARZATE- NO LEUKOGRAM AT THIS TIME, ORDER RECIEVED FOR RENAL ULTRASOUND ON THE RIGHT.
--- NOTE | 2020-03-24 16:41 | NUR ---
Spiritual care note: I met with pt and mother at bedside. Mikayla appears frail, but smiles easily and asked for prayer. Mom tells me that Mikayla had been living with her older dtr until recently. Mom admits she feels overwhelmed, but also stresses deep love for her dtr. She asked about getting home health to help and I advised speaking with physician. Untimately, mom would like pt to live at [facility]. I provided theraputic listening and emotional affirmation. Mikayla denied fears/concerns. Prayer for healing facilitated with pt, mom. Encouraged self-care and rest while pt is hospitalized. I will remain available.
--- NOTE | 2020-03-24 19:29 | NUR ---
SHIFT SUMMARY- PT HAS HAD NO ACUTE CHANGE T/O THE DAY. PAIN SEEMS WELL MANAGED. NEPHROSTOMY FLUSHED PER MD ORDER AND IS DRAINING CLEAR YELLOW URINE WITH SEDIMENT, DR GIBBONS RENAL US ORDERED AND COMPLETED TODAY PER PRELIMINARY REPORT NO HYDRONEPHROSIS WAS SEEN. PT STATED THE PAIN SEEMS BETTER THIS EVENING. PRN FENTANYL USED ONCE TODAY. PT IN BED CALL LIGHT IN REACH (SOFT TOUCH), PT CALLS FOR ASSISTANCE. Q2 TURNS FOR PT COMFORT. UROSTOMY IN PLACE PATENT AND DRAINING YELLOW URINE. NO S&S OF DISTRESS NOTED AT THE TIME OF SHIFT CHANGE, BEDSIDE REPORT COMPLETED WITH NIGHT AMITA MONTESINOS.
--- NOTE | 2020-03-25 09:08 | NUR ---
nephrostomy tube flushed with 5 ml nacl without difficulty. patient tolerated well.
[2020-03-25] MEDS ORDERED: DOCU100 PO (11:37)
[2020-03-25] MEDS ORDERED: VISBIOME 112.51 EACH PO (11:39)
[2020-03-25] MEDS ORDERED: ROXICODONE5 MG PO (11:39)
[2020-03-25] MEDS ORDERED: CIPR500 PO (11:40)
--- NOTE | 2020-03-25 14:01 | NUR ---
REVIEW D'C WITH MOM. AWARE MEDS AT [facility]OM[facility]OWN. HAS F/U APPT W/ AND . HAS HARD COPY FOR NARCS. IS FAMILAR ON HOW TO FLUSH NEPHROSTOMY TUBE. GIVEN NACL FLUSHES AND ADVISED IF RUNS OUT OF TID FLUSHES TO TALK TO [facility]OM[facility]. DISCUSS NATURAL METHODS FOR B.M.--EQUAL AMOUNTS PRUNE JUICE WITH APPLE JUICE AND MELT PAT OF BUTTER. GIVE WARMED. PATIENT HAD THIS EARLIER TODAY. ANSWER ALL QUESTIONS. IN OWN W/C TO POV.
[2020-05-12] MEDS ORDERED: CEPH500 PO (17:33)
[2020-05-12] MEDS ORDERED: IBUP600 PO (17:33)
[2020-07-19] MEDS ORDERED: PRAM.125 PO (15:57)
[2020-07-19] MEDS ORDERED: ONDA4 PO (15:58)
[2020-07-19] MEDS ORDERED: Keflex500 MG PO (18:00)
== END 2020-03-25 14:13 | disposition home or self-care (01) | DRG 699 ==
LOC: ER 12:00 → MEDS 17:31
PROVIDERS: Emergency Medicine; Family Medicine; Nurse Practitioner Acute Care; ADMIT Internal Medicine
PROC: 0T9030Z Drainage of Right Kidney with Drainage Device, Percutaneous Approach (ICD-10-PCS; principal; 2020-03-21)
DX: N99.89 Other postprocedural complications and disorders of genitourinary system (principal); N13.1 Hydronephrosis with ureteral stricture, not elsewhere classified; F41.9 Anxiety disorder, unspecified; G80.9 Cerebral palsy, unspecified; I95.9 Hypotension, unspecified; K21.9 Gastro-esophageal reflux disease without esophagitis; N31.9 Neuromuscular dysfunction of bladder, unspecified; Z99.3 Dependence on wheelchair; Z87.442 Personal history of urinary calculi
CPT/HCPCS: 0241U; 36415; 50432; 74177; 76705; 80048; 80053; 80069; 81001; 83605; 85025; 87040; 87086; 96361; 96374-59; 96375; 99152; 99153; 99285-25; A9270; C1729; C1769; C1894; J0744; J2250; J2270; J2405; J3010; J3480; J7030; Q9967

== ENCOUNTER 2020-06-21 10:21 | Emergency (ER) | payer OTHER ==
[~2020-06-21] VITALS: Ht 132.1 cm; Wt 36.3 kg
[~2020-06-21 10:21] MED LIST changes: +CEPH500 PO; +DOCU100 PO; +IBUP600 PO; +PROM12.5S PR; +ROXICODONE5 MG PO; +VISBIOME 112.51 EACH PO
[2020-06-21 11:03] LABS: Source, Urine Clean Catch
[2020-06-21 11:07] LABS: BASOPHILS ABSOLUTE AUTO 0.04 K/mm3 (0.00-0.23); BASOPHILS PERCENT AUTO 0 % (0-2); EOSINOPHILS ABSOLUTE AUTO 0.17 K/mm3 (0.00-0.68); EOSINOPHILS PERCENT AUTO 2 % (0-6); Hematocrit 37.4 % (33.0-51.0); Hemoglobin 12.2 g/dL (11.5-16.0); IMMATURE GRAN ABSOLUTE AUTO 0.06 K/mm3 (0.00-0.10); IMMATURE GRAN PERCENT AUTO 1 % (0-1); LYMPHOCYTES PERCENT AUTO 21 % (21-46); MONOCYTES ABSOLUTE AUTO 0.61 K/mm3 (0.16-1.47); MONOCYTES PERCENT AUTO 7 % (4-13); Mean Corpuscular HGB 29.3 pg (26.0-34.0); Mean Corpuscular HGB Conc 32.6 g/dL (31.5-36.5); Mean Corpuscular Volume 90 fL (80-100); Mean Platelet Volume 9.4 fL (9.1-12.4); NEUTROPHILS ABSOLUTE AUTO 6.27 K/mm3 (1.96-9.15); NEUTROPHILS PERCENT AUTO 69 % (41-73); Platelet Count 351 K/mm3 (150-400); RDW Coefficient Variation 13.4 % (11.7-14.2); RDW Standard Deviation 44.1 fL (35.1-46.3); Red Blood Cell Count 4.16 M/mm3 (3.80-5.20); White Blood Cell Count 9.05 K/mm3 (4.00-11.30)
[2020-06-21 11:08] LABS: Appearance, Urine Cloudy (Clear); Bilirubin, Urine Neg (Neg); Blood, Urine 5+ (Neg); Color, Urine Yellow (P-Yellow); Glucose Qualitative, Urine Neg (Neg); Ketones, Urine 1+ (Neg); Leukocyte Esterase, Urine 3+ (Neg); Nitrite, Urine Neg (Neg); Protein, Urine 3+ (Neg); Urobilinogen, Urine NORM (Normal)
[2020-06-21 11:21] LABS: Amorphous Mod (0-Heavy); Bacteria Mod /hpf; Squamous Epithelial Cells Rare /hpf (Few)
[2020-06-21 11:22] LABS: Red Blood Cells, Urine 50-100 /hpf (0-2)
[2020-06-21 11:22] LABS: Alanine Aminotransfer (ALT/SGP 20 U/L (12-78); Albumin, Blood 3.5 g/dL (3.4-5.0); Albumin/Globulin Ratio 0.9 (0.8-1.8); Alk Phos 76 U/L (50-136); Anion Gap 7 mmol/L (6-16); Aspartate Aminotrans (AST/SGOT 17 U/L (12-37); Bilirubin, Total 0.5 mg/dL (0.1-1.0); Blood Urea Nitrogen 23 mg/dL (8-24); Bun/Creatinine Ratio 35.8 (12.0-20.0); CO2, Blood 22 mmol/L (21-32); Calcium, Blood 9.3 mg/dL (8.5-10.1); Chloride, Blood 110 mmol/L (98-108); Creatinine, Blood 0.64 mg/dL (0.40-1.00); Globulin, Blood 4.1 g/dL (2.2-4.0); Glomerular Filtration Rate >60 (60-); Glucose, Blood 79 mg/dL (70-99); Sodium, Blood 139 mmol/L (136-145); Total Protein, Blood 7.6 g/dL (6.4-8.2)
[2020-07-19] MEDS ORDERED: PRAM.125 PO (15:57)
[2020-07-19] MEDS ORDERED: ONDA4 PO (15:58)
[2020-07-19] MEDS ORDERED: Keflex500 MG PO (18:00)
== END 2020-06-21 15:00 | disposition home or self-care (01) ==
LOC: ER 10:21
PROVIDERS: Emergency Medicine
DX: N13.2 Hydronephrosis with renal and ureteral calculous obstruction (principal); Z79.899 Other long term (current) drug therapy
CPT/HCPCS: 76770; 80053; 81001; 85025; 87077; 87086; 87186; 96374; 96375; 99284-25; A9270; J1885; J3010

== ENCOUNTER 2020-06-25 16:15 | Inpatient (IN) | payer OTHER ==
[~2020-06-25] VITALS: Ht 152.4 cm; Wt 38.7 kg
[2020-06-25 18:06] LABS: BASOPHILS ABSOLUTE AUTO 0.05 K/mm3 (0.00-0.23); BASOPHILS PERCENT AUTO 0 % (0-2); EOSINOPHILS ABSOLUTE AUTO 0.01 K/mm3 (0.00-0.68); EOSINOPHILS PERCENT AUTO 0 % (0-6); Hematocrit 36.7 % (33.0-51.0); Hemoglobin 12.1 g/dL (11.5-16.0); IMMATURE GRAN ABSOLUTE AUTO 0.57 K/mm3 (0.00-0.10); IMMATURE GRAN PERCENT AUTO 2 % (0-1); LYMPHOCYTES ABSOLUTE AUTO 0.73 K/mm3 (0.84-5.20); LYMPHOCYTES PERCENT AUTO 3 % (21-46); MONOCYTES ABSOLUTE AUTO 1.57 K/mm3 (0.16-1.47); MONOCYTES PERCENT AUTO 7 % (4-13); Mean Corpuscular HGB 28.9 pg (26.0-34.0); Mean Corpuscular Volume 88 fL (80-100); Mean Platelet Volume 9.1 fL (9.1-12.4); NEUTROPHILS ABSOLUTE AUTO 20.65 K/mm3 (1.96-9.15); NEUTROPHILS PERCENT AUTO 88 % (41-73); Platelet Count 310 K/mm3 (150-400); RDW Coefficient Variation 13.9 % (11.7-14.2); RDW Standard Deviation 44.5 fL (35.1-46.3); Red Blood Cell Count 4.18 M/mm3 (3.80-5.20); White Blood Cell Count 23.58 K/mm3 (4.00-11.30)
[2020-06-25 18:30] LABS: Alanine Aminotransfer (ALT/SGP 12 U/L (12-78); Albumin, Blood 3.1 g/dL (3.4-5.0); Albumin/Globulin Ratio 0.7 (0.8-1.8); Alk Phos 81 U/L (50-136); Anion Gap 10 mmol/L (6-16); Aspartate Aminotrans (AST/SGOT 5 U/L (12-37); Bilirubin, Total 0.5 mg/dL (0.1-1.0); Blood Urea Nitrogen 26 mg/dL (8-24); Bun/Creatinine Ratio 25.2 (12.0-20.0); CO2, Blood 16 mmol/L (21-32); Calcium, Blood 9.4 mg/dL (8.5-10.1); Chloride, Blood 110 mmol/L (98-108); Creatinine, Blood 1.03 mg/dL (0.40-1.00); Globulin, Blood 4.3 g/dL (2.2-4.0); Glomerular Filtration Rate >60 (60-); Glucose, Blood 157 mg/dL (70-99); Potassium, Blood 3.5 mmol/L (3.5-5.5); Sodium, Blood 136 mmol/L (136-145); Total Protein, Blood 7.4 g/dL (6.4-8.2)
[2020-06-25] MEDS ORDERED: HYDROCODONE-AC1 EA12 PO (18:46)
[2020-06-25 19:15] LABS: Source, Urine Clean Catch
[2020-06-25 19:44] LABS: Bilirubin, Urine Neg (Neg); Blood, Urine 5+ (Neg); Glucose Qualitative, Urine Neg (Neg); Ketones, Urine Neg (Neg); Leukocyte Esterase, Urine 3+ (Neg); Nitrite, Urine Neg (Neg); Protein, Urine 4+ (Neg); Urobilinogen, Urine NORM (Normal)
[2020-06-25 19:46] LABS: Appearance, Urine Cloudy (Clear); Color, Urine Yellow (P-Yellow)
[2020-06-25 19:48] LABS: Red Blood Cells, Urine TNTC /hpf (0-2); Squamous Epithelial Cells Few /hpf (Few); White Blood Cells, Urine TNTC /hpf (0-5)
[2020-06-25 19:49] LABS: Bacteria Many /hpf
[2020-06-26] MEDS ORDERED: MELATONIN5 M1 PO (00:10)
[2020-06-26 05:27] LABS: Anion Gap 9 mmol/L (6-16); Blood Urea Nitrogen 23 mg/dL (8-24); Bun/Creatinine Ratio 27.3 (12.0-20.0); CO2, Blood 13 mmol/L (21-32); Calcium, Blood 8.1 mg/dL (8.5-10.1); Chloride, Blood 118 mmol/L (98-108); Creatinine, Blood 0.84 mg/dL (0.40-1.00); Glomerular Filtration Rate >60 (60-); Glucose, Blood 117 mg/dL (70-99); Potassium, Blood 3.3 mmol/L (3.5-5.5); Sodium, Blood 140 mmol/L (136-145)
[2020-06-26 05:32] LABS: Hematocrit 33.9 % (33.0-51.0); Hemoglobin 11.1 g/dL (11.5-16.0); Mean Corpuscular HGB Conc 32.7 g/dL (31.5-36.5); Mean Corpuscular Volume 89 fL (80-100); Mean Platelet Volume 9.1 fL (9.1-12.4); Platelet Count 322 K/mm3 (150-400); RDW Coefficient Variation 14.4 % (11.7-14.2); RDW Standard Deviation 45.9 fL (35.1-46.3); Red Blood Cell Count 3.83 M/mm3 (3.80-5.20); White Blood Cell Count 26.95 K/mm3 (4.00-11.30)
[2020-06-26 05:33] LABS: BAND PERCENT MAN 26 % (0-8); BASOPHILS PERCENT MAN 0 % (0-2); EOSINOPHILS PERCENT MAN 0 % (0-6); LYMPHOCYTES ABSOLUTE MAN 1.07 K/mm3 (0.84-5.20); LYMPHOCYTES PERCENT MAN 4 % (21-46); MONOCYTES ABSOLUTE MAN 0.53 K/mm3 (0.16-1.47); MONOCYTES PERCENT MAN 2 % (4-13); NEUTROPHILS ABSOLUTE MAN 25.33 K/mm3 (1.96-9.15); SEG NEUTROPHILS PERCENT MAN 68 % (41-73); TOTAL CELLS COUNTED 100
--- NOTE | 2020-06-26 06:20 | NUR ---
END OF SHIFT SUMMARY: PATIENT A/O X4 BUT SLOW TO RESPOND DUE TO CEREBRAL PALSY. PATIENT IN GOOD SPIRITS & COOPERATIVE. PATIENT WAS ON 8 OF LEVO ON ADMISSION TO ICU AND STILL REMAINS AT 7. HOSPITAISLT PLACED A R IJ CENTRAL LINE OVERNIGHT DUE TO BEING UNABLE TO LOWER LEVOPHED MUCH LOWER WHILE GOING THROUGH EJ. LABS PATIENT HAD MINOR ASPIRATION ONCE IN REVERSE TREND FOR LINE PLACEMENT. PATIENT WAS PLACED UPRIGHT AND SUNCTIONED AND TEMPORARILY PLACED O2 4L O2. OXYGEN REMOVED THIS MORNING. PATIENT REPORTS SHE HASN'T ATE SINCE 06/28. PATIENT ATE SOME JELLO.
--- NOTE | 2020-06-26 18:29 | NUR ---
SHIFT SUMMARY PT REMAINS IN LEVO GTT, INFUSING AT 12 MCG/MIN. DISCUSSED POSITIVE BLOOD CULTURES c DR CRAIG. AAYUSH AND VASOPRESSIN ADDED. K REPLACED THIS SHIFT. IVF c 20 MEQ K INFUSING AT THIS TIME. PT C/O INTERMITTANTLY OF FLANK PAIN. IMPROVED c FENTANYL. UROSTOMY TO RLQ, CLOUDY, FOUL SMELLING URINE OUT. STOMA RED, PROLAPSED. NEPHROSTOMY TO RIGHT FLANK, MINIMAL URINE IN DRAINAGE BAG. LUNGS CLEAR. ABD SOFT, NON TENDER. BT X 4. GOOD APPETITE AND PO INTAKE THIS SHIFT. UP TO CHAIR FOR APPROX 1/[address], RATE 120'S. WILL CONTINUE TO MONITOR UNTIL REPORT TO ONCOMING NURSE.
[2020-06-27 03:59] LABS: BASOPHILS ABSOLUTE AUTO 0.03 K/mm3 (0.00-0.23); BASOPHILS PERCENT AUTO 0 % (0-2); EOSINOPHILS ABSOLUTE AUTO 0.01 K/mm3 (0.00-0.68); EOSINOPHILS PERCENT AUTO 0 % (0-6); Hematocrit 28.4 % (33.0-51.0); Hemoglobin 9.6 g/dL (11.5-16.0); IMMATURE GRAN ABSOLUTE AUTO 0.49 K/mm3 (0.00-0.10); IMMATURE GRAN PERCENT AUTO 3 % (0-1); LYMPHOCYTES ABSOLUTE AUTO 1.36 K/mm3 (0.84-5.20); LYMPHOCYTES PERCENT AUTO 7 % (21-46); MONOCYTES PERCENT AUTO 4 % (4-13); Mean Corpuscular HGB 29.2 pg (26.0-34.0); Mean Corpuscular HGB Conc 33.8 g/dL (31.5-36.5); Mean Corpuscular Volume 86 fL (80-100); Mean Platelet Volume 9.1 fL (9.1-12.4); NEUTROPHILS ABSOLUTE AUTO 15.82 K/mm3 (1.96-9.15); NEUTROPHILS PERCENT AUTO 86 % (41-73); Platelet Count 280 K/mm3 (150-400); RDW Coefficient Variation 14.7 % (11.7-14.2); RDW Standard Deviation 47.3 fL (35.1-46.3); Red Blood Cell Count 3.29 M/mm3 (3.80-5.20); White Blood Cell Count 18.41 K/mm3 (4.00-11.30)
[2020-06-27 04:17] LABS: Alanine Aminotransfer (ALT/SGP 11 U/L (12-78); Albumin, Blood 2.2 g/dL (3.4-5.0); Albumin/Globulin Ratio 0.7 (0.8-1.8); Alk Phos 87 U/L (50-136); Anion Gap 8 mmol/L (6-16); Aspartate Aminotrans (AST/SGOT 4 U/L (12-37); Bilirubin, Total 0.5 mg/dL (0.1-1.0); Blood Urea Nitrogen 15 mg/dL (8-24); Bun/Creatinine Ratio 19.5 (12.0-20.0); CO2, Blood 13 mmol/L (21-32); Calcium, Blood 8.4 mg/dL (8.5-10.1); Chloride, Blood 121 mmol/L (98-108); Creatinine, Blood 0.77 mg/dL (0.40-1.00); Globulin, Blood 3.3 g/dL (2.2-4.0); Glomerular Filtration Rate >60 (60-); Glucose, Blood 93 mg/dL (70-99); Sodium, Blood 142 mmol/L (136-145); Total Protein, Blood 5.5 g/dL (6.4-8.2)
--- NOTE | 2020-06-27 06:40 | NUR ---
END OF SHIFT SUMMARY: PATIENT REMAINS A/O X4 AND VERY PLEASANT. PATIENT HAS BEEN NSR/ST 70-110. BP GOAL STILL MAP>65. LEVO AND VASO CONTINUE TO INFUSE. LEVO AT 5 AND VASO 0.04. ATTEMPTED TURNING OFF VASO MID-SHIFT AND I KEPT HAVING TO GO UP ON LEVO SO VASO WAS RESTARTED. UROSTOMY OUTPUT IS GETTING MORE CLEAR AND SHE HAS HAD A LOT OF OUTPUT FROM. NO OUTPUT FROM NEPHROSTOMY. JO HAD A BM THIS MORNING AND LABS WNL.
--- NOTE | 2020-06-27 07:30 | NUR ---
PT A&OX4. CEREBRAL PALSY @ BASELINE-NEUROLOGICALLY AT NEURO BASELINE. PT TEARFUL AND REPORTING 9/10 LEFT FLANK PAIN-MED WITH FENTANYL 50 MCG IVP X 1. PT IS AFEBRILE-ECG SHOWS SR TO ST WITH RATE 90-110'S. MAP TRENDING 60-65 WITH LEVOPHED DRIP @ 5 MCG/MIN AND VASOPRESSIN @ 0.04 UNITS/MIN. LUNGS CLEAR-NO NOTED SOB OR COUGH. PT ABLE TO SWALLOW AM MED WITH A SIP OF WATER WITHOUT DIFFICULTY. SATS 90% ON RA. INCONTINENT OF SMEAR OF BROWN STOOL. SETH CARE DONE AND DRY FLOW PAD CHANGED. PT REQUESTS TO NOT WEAR A "DIAPER." REQUEST GRANTED. NEPHROSTOMY TUBE WITH SCAN AMOUNT OF DARK, YELLOW URINE TO COLLECTION BAG. UROSTOMY WITH 350 CC OF CLOUDY, YELLOW URINE EMPTIED.
--- NOTE | 2020-06-27 09:00 | NUR ---
PT USED THE SOFT TOUCH CALL SYSTEM TO [place] RN AND ASSET PROTECTION ASSISTANT TO BEDSIDE. PT REPORTS HAVING HAD A BM. SETH CARE DONE AND DRY FLOW PAD CHANGED. PT REPOSITIONED TO COMFORT ON LEFT SIDE. GIVEN WARM BLANKETS.
--- NOTE | 2020-06-27 12:00 | NUR ---
PT REPORTS NAUSEA AND IS REFUSING LUNCH AT THIS TIME. MED WITH ZOFRAN 4 MG IVP X 1.
--- NOTE | 2020-06-27 13:30 | NUR ---
ASSUMED CARE RECEIVED REPORT FROM AMITA KNIGHT. PT SLEEPING IN BED COMFORTABLY AT THIS TIME. RIJ INFUSING LEVOPHED AT 3MCG/MIN, VASOPRESSIN 0.04UNITS/HR, AND NS 20MEQ KCL AT 150ML/HR. IV TO RFA SALINE LOCKED. R NEPHROSTOMY TUBE IN PLACE WITH SCANT OUTPUT, TUBE NOT SUTURED IN PLACE. UROSTOMY DRAINAGE BAG C/D/I WITH CLOUDY YELLOW OUTPUT. CONTRACTURES TO L ELBOW, BILAT WRIST, L HAND, ABLE TO MOVE POINTER FINER AND THUMB ON R HAND, UNABLE TO MOVE BILAT LEGS. A&O X4 WHEN AWAKE. ABLE TO COMMUNICATE NEEDS. C/O FLANK PAIN 10/17, MEDICATING WITH 50MCG FENTANYL PER APR. VS STABLE. WILL CONTINUE TO MONITOR.
--- NOTE | 2020-06-27 15:32 | NUR ---
FAMILY UPDATE PT MOTHER DENA AT BEDSIDE. PT IS RESTING QUIETLY INITIALLY, PT TEARFUL WHEN MOTHER AT BEDSIDE. PT MEDICATED FOR FLANK PAIN WITH FENTANYL PRN. PT MOTHER INQUIRING ABOUT CT SCAN RESULTS AND WANTING TO TALK TO A PHYSICIAN ABOUT PT DISEASE PROCESS AND SOURCE OF INFECTION. DR ANDERSON CALLED AND CAME TO BEDSIDE. DR ANDERSON HAD EXTENSIVE CONVERSATION ABOUT DISEASE PROCESS, CT RESULTS, AND PLAN OF CARE. PT MOTHER DENA PROVIDED WITH CONTACT TO MEDICAL RECORDS TO OBTAIN ADDITIONAL CT SCAN INFORMATION. PT RESTING QUIELT AT THIS TIME. WILL CONTINUE TO RACQUEL.
--- NOTE | 2020-06-27 17:50 | NUR ---
SHIFT SUMMARY PT SITTING UP IN BED, EATING DINNER WITH ASSITANCE OF DISPATCHER TUGBOAT. A&OX4, ABLE TO COMMUNICATE NEEDS. UROSTOMY CONTINUES TO PRODUCE YELLOW CLOUDY URINE, APPLIANCE OVERALL C/D/I. R NEPHROSTOMY TUBE CONTINUES TO HAVE SCANT AMOUNT OF DRAINAGE IN BAG, TUBE NOT SECURED BY SUTURES AT THIS TIME. SKIN OVERALL C/D/I, CONTRACTURES TO EXTREMITIES REMAIN. PT CONTINUES TO C/O FLANK PAIN, MEDICATED WITH 50MCG FENTANYL PER MAR PRN. RIJ CONTINUES TO INFUSE LEVOPHED 2MCG/MIN, VASOPRESSIN 0.04UNITS/MIN, AND NS 20MEQ KCL 150ML/HR. IV TO RFA SALINE LOCKED. MOM DENA AT BEDSIDE THIS AFTERNOON. VS STABLE. WILL CONTINUE TO MONITOR.
--- NOTE | 2020-06-27 18:31 | NUR ---
DOCUMENTATION REVIEW ALL ASSESSMENTS AND NOTES REVIEWED FROM THIS SHIFT. I AGREE WITH COMPUTER PROGRAMMER DOCUMENTATION FROM THIS SHIFT.
[2020-06-28 06:12] LABS: BASOPHILS ABSOLUTE AUTO 0.01 K/mm3 (0.00-0.23); BASOPHILS PERCENT AUTO 0 % (0-2); EOSINOPHILS ABSOLUTE AUTO 0.01 K/mm3 (0.00-0.68); EOSINOPHILS PERCENT AUTO 0 % (0-6); Hematocrit 24.3 % (33.0-51.0); Hemoglobin 8.4 g/dL (11.5-16.0); IMMATURE GRAN ABSOLUTE AUTO 0.07 K/mm3 (0.00-0.10); IMMATURE GRAN PERCENT AUTO 1 % (0-1); LYMPHOCYTES ABSOLUTE AUTO 1.19 K/mm3 (0.84-5.20); LYMPHOCYTES PERCENT AUTO 8 % (21-46); MONOCYTES ABSOLUTE AUTO 0.71 K/mm3 (0.16-1.47); MONOCYTES PERCENT AUTO 5 % (4-13); Mean Corpuscular HGB 29.5 pg (26.0-34.0); Mean Corpuscular HGB Conc 34.6 g/dL (31.5-36.5); Mean Corpuscular Volume 85 fL (80-100); Mean Platelet Volume 9.2 fL (9.1-12.4); NEUTROPHILS ABSOLUTE AUTO 12.52 K/mm3 (1.96-9.15); NEUTROPHILS PERCENT AUTO 86 % (41-73); Platelet Count 229 K/mm3 (150-400); RDW Coefficient Variation 15.1 % (11.7-14.2); RDW Standard Deviation 47.3 fL (35.1-46.3); Red Blood Cell Count 2.85 M/mm3 (3.80-5.20); White Blood Cell Count 14.51 K/mm3 (4.00-11.30)
--- NOTE | 2020-06-28 06:32 | NUR ---
END OF SHIFT SUMMARY: PATIENT A/O X4 AND WILL TELL YOU WHAT SHE NEEDS! PATIENT HAS REMAINED IN NSR/ST OVERNIGHT. PATIENT WENT INTO AFIB BUT REMAINED IN 120S ON MONITOR AND IT ONLY LASTED FOR ABOUT 5 MINUTES. PATIENT WENT RIGHT BACK INTO ST BUT HAS REMAINED 110-120S MOST OF THE MORNING. PATIENT HAS BEEN OFF OF LEVO SINCE AUTO WINDER WELL. 2L NC APPLIED WHILE PATIENT SLEEPS DUE TO DESATS OF 87%. PAIN MEDS REQUIRED ALMOST EVERY 2HRS FOR L FLANK PAIN. PATIENT WAS NAUSEOUS THIS MORNING SO ZOFRAN GIVEN. NO EMESIS
[2020-06-28 06:35] LABS: Albumin, Blood 3.1 g/dL (3.4-5.0); Anion Gap 8 mmol/L (6-16); Blood Urea Nitrogen 12 mg/dL (8-24); Bun/Creatinine Ratio 17.3 (12.0-20.0); CO2, Blood 13 mmol/L (21-32); Calcium, Blood 8.3 mg/dL (8.5-10.1); Chloride, Blood 126 mmol/L (98-108); Glomerular Filtration Rate >60 (60-); Glucose, Blood 87 mg/dL (70-99); Phosphorus, Blood 1.3 mg/dL (2.5-4.9); Potassium, Blood 3.1 mmol/L (3.5-5.5); Sodium, Blood 147 mmol/L (136-145); Vancomycin, Trough 11.3 ug/mL (5.0-10.0)
--- NOTE | 2020-06-28 08:00 | NUR ---
PT REMAINS A&OX4. NO NEURO CHANGES. PT AT HER BASELINE. REPORTS 5/10 LEFT FLANK PAIN-MED WITH NORCO PO-SEE EMAR. PT REPORTS INTERMITTENT NAUSEA AND POOR APPETITE. MED WITH ZOFRAN 4 MG IVP PRIOR TO AM MEDS AND BREAKFAST. PT ABLE TO SWALLOW MEDS ONE AT A TIME WITHOUT SIGNS OF ASPIRATION. ECG CONTINUES SR TO ST WITH RATE 90-100'S. TEMP 99.3. LEVOPHED DRIP HAS BEEN OFF SINCE APROX. 0200-SBP TRENDING 90'S AND MAP GREATER THAN 60. LUNGS DIMINISHED IN THE BASES. RESPIRATIONS SHALLOW AND PT INTERMITTENTLY TACHYPNEIC WITH RATE 28-32. ENCOURAGED COUGHING AND DB, BUT VERY WEAK COUGH. SATS 90% ON 2 LITERS NASAL CANULA. UROSTOMY CONTINUES TO DRAIN ADEQUATE AMOUNTS OF CLOUDY, YELLOW URINE. NEPHROSTOMY CONTINUES TO DRAIN ONLY SCANT AMOUNTS OF DARK, YELLOW URINE.
--- NOTE | 2020-06-28 11:11 | NUR ---
PT REPORTS 6/10 LEFT FLANK PAIN. MED WITH FENTANYL 50 MCG IVP X 1-SEE EMAR. NO OTHER ACUTE CHANGES. REPORT PHONED TO AMITA MARQUEZ IN PREP TO TRANSFER PT TO PCU 11. PT MOTHER DENA UPDATED TO PT STATUS CHANGE AND PLAN OF CARE. PT MOTHER MADE AWARE THAT PT IS TRANSFERING TO PCU 11.
--- NOTE | 2020-06-28 15:14 | NUR ---
1422: THIS RN ENTERED ROOM NOTING THAT THE SPO2 MONITOR WAS ALARMING. SPO2 READING 86%. PT APPEARS TO BE IN PAIN, RN NOTES PT IS GRMACING AND LEANING TOWARD HER RIGHT SIDE. PT STATES THAT SHE IS IN 9/10 PAIN ON HER RIGHT SIDE. 1426: NORCO ADMINSTERED PER EMAR. SP02 SATS CONTINUE TO BE IN THE 80s. OXYGEN PER NC INCREASED TO 5L. PT IS REPOSITIONED IN BED, HOB>30 DEGREES. THIS RN AT BEDSIDE CONTINUING TO MONITOR. 1430: SP02 CONTINUES TO BE IN THE 80s, HR 100, BP 99/47, TEMP 98.8, RR 30. PT'S MOTHER ARRIVES TO ROOM TO VISIT, DR CHERRY NOTIFIED OF HER REQUEST TO SPEAK WITH THE DR ABOUT HER CONCERS ABOUT THE PT'S BLADDER. UROSTOMY BAG IS NOTED TO BE VERY FULL, IT IS EMPTIED AT THIS TIME AND THE PT IS REPOSITIONED TO HER LEFT SIDE, PT STATES THIS HAS HELPED RELEIVE HER PAIN. 1435: PT'S PRIMARY RN UPDATED ON PT'S STATUS AT BEDSIDE. PT IS PLACED ON NONREBREATHER MASK AT 10L, SPO2 INCREASES TO 93%. 1445: DR CHERRY PAGED TO COME SPEAK WITH PT'S MOTHER AGAIN, THE MOTHER IS VERY INSISTANT ABOUT SPEAKING WITH THE DR ABOUT THE PT'S BLADDER AND HOW IT IS CAUSING THE PT TO BE ILL REPEATEDLY. PORTABLE XRAY IN ROOM. 1510: PT MEDICATED WITH FENTANYL WITH GOOD EFFECT. PRIMARY RN AT BEDSIDE TO MONITOR.
[2020-06-28 19:17] LABS: Base Excess Venous -13.8 mmol/L; Bicarbonate Venous 14.4 mmol/L (24.0-30.0); PCO2 Venous 25.3 mmHg (38-42)
--- NOTE | 2020-06-28 20:04 | NUR ---
PATIENT ARRIVED TO UNIT FROM ICU VIA BED. PATIENT IS ABLE TO ANSWER YES/NO QUESTIONS WITH SHAKING AND NODDING HEAD, IS ALERT AND APPEARS ORIENTED. PATIENT IS ABLE TO PROVIDE NUMBER WHEN ASKED ABOUT PAIN LEVEL AND PAIN RATING SCALE. PATIENT ARRIVED FROM ICU ON 2 L VIA NASAL CANNULA. SOFT TOUCH CALL LIGHT WITHIN REACH. PATIENT REPORTED NAUSEA AT ONE TIME THIS SHIFT, ZOFRAN GIVEN AND RELIEF ENDORSED BY PATIENT. SEE NOTE BY DEBBIE MONTAÑO AT 1514. THIS RN ARRIVED BACK TO UNIT AFTER BREAK AND RECIEVED REPORT FROM THE NURSE COVERING (DEBBIE MONTAÑO) REGARDING PATIENT'S INCREASED O2 NEEDS. ONCE PATIENT ON NONREBREATHER WITH MAE RN AT BEDSIDE, THIS RN CALLED DR. CHERRY TO INFORM HER OF INCREASED O2 DEMAND RELATED TO INCREASE IN PATIENT'S FLANK PAIN. PATIENT TAKING FAST AND SHALLOW BREATHS AND REQUIRED NONREBREATHER IN ORDER TO IMPROVE O2 SATS FROM 70% BACK TO >90%. DR. CHERRY NOTIFIED, ORDERS FOR CXR GIVEN AND ORDERS FOR INCREASING NORCO FROM BID TO Q4 GIVEN. PATIENT'S RESPIRATORY RATE IMPROVED FROM 60s DOWN TO 30s COINSIDING WITH EACH FENTANYL ADMINISTRATION, O2 SATS IMPROVED EACH TIME WELL. AT 1815 PATIENT WAS CALLING OUT IN PAIN, THIS RN ENTERED ROOM AND CHECKED VITALS, ELEVATED TEMP NOTED, TACHY HR IN 120S AND ELEVATED RR OF 60 NOTED. THIS RN GAVE TYLENOL PER EMAR AND CALLED TO NOTIFY DR. CHERRY. DR. CHERRY GAVE ORDERS FOR BIPAP PROTOCOL WELL BLOOD CULTURES. PATIENT REMAINED ALERT AND ORIENTED T/O SHIFT EVEN DURING TIMES OF DECREASED O2 SATS. REPORT GIVEN TO ONCOMING SHIFT NURSE.
[2020-06-29 05:08] LABS: BASOPHILS ABSOLUTE AUTO 0.03 K/mm3 (0.00-0.23); BASOPHILS PERCENT AUTO 0 % (0-2); EOSINOPHILS ABSOLUTE AUTO 0.06 K/mm3 (0.00-0.68); EOSINOPHILS PERCENT AUTO 1 % (0-6); Hematocrit 25.6 % (33.0-51.0); Hemoglobin 8.7 g/dL (11.5-16.0); IMMATURE GRAN ABSOLUTE AUTO 0.19 K/mm3 (0.00-0.10); IMMATURE GRAN PERCENT AUTO 2 % (0-1); LYMPHOCYTES PERCENT AUTO 17 % (21-46); MONOCYTES ABSOLUTE AUTO 1.17 K/mm3 (0.16-1.47); MONOCYTES PERCENT AUTO 10 % (4-13); Mean Corpuscular HGB 29.7 pg (26.0-34.0); Mean Corpuscular Volume 87 fL (80-100); Mean Platelet Volume 9.2 fL (9.1-12.4); NEUTROPHILS ABSOLUTE AUTO 8.04 K/mm3 (1.96-9.15); NEUTROPHILS PERCENT AUTO 70 % (41-73); Platelet Count 191 K/mm3 (150-400); RDW Coefficient Variation 15.8 % (11.7-14.2); RDW Standard Deviation 49.9 fL (35.1-46.3); Red Blood Cell Count 2.93 M/mm3 (3.80-5.20); White Blood Cell Count 11.49 K/mm3 (4.00-11.30)
[2020-06-29 05:50] LABS: Alanine Aminotransfer (ALT/SGP 14 U/L (12-78); Albumin, Blood 3.4 g/dL (3.4-5.0); Albumin/Globulin Ratio 1.2 (0.8-1.8); Alk Phos 85 U/L (50-136); Anion Gap 10 mmol/L (6-16); Aspartate Aminotrans (AST/SGOT 9 U/L (12-37); Blood Urea Nitrogen 12 mg/dL (8-24); CO2, Blood 13 mmol/L (21-32); Calcium, Blood 7.9 mg/dL (8.5-10.1); Chloride, Blood 124 mmol/L (98-108); Globulin, Blood 2.8 g/dL (2.2-4.0); Glomerular Filtration Rate >60 (60-); Glucose, Blood 71 mg/dL (70-99); Phosphorus, Blood 2.6 mg/dL (2.5-4.9); Potassium, Blood 3.7 mmol/L (3.5-5.5); Sodium, Blood 147 mmol/L (136-145); Total Protein, Blood 6.2 g/dL (6.4-8.2)
--- NOTE | 2020-06-29 05:55 | NUR ---
SHIFT SUMMARY PATIENT IS ALERT AND ORIENTED. SLOW TO RESPOND. Q2 HOUR TURNING. NEPHROSTOMY SCANT AMOUNT OF DRAINAGE. UROSTOMY DRAINING. PATIENT VERY ANXIOUS AND PAINFUL. MEDICATED FOR SEVERE PAIN, SEE EMAR. PROVIDED DISTRACTION. RESPIRATORY RATE RANGING FROM 30-60 BPM. OXYGEN REQUIREMENTS INCREASING, PATIENT NOW ON 14L HIGH FLOW, 02 SATS 91%. BLOOD PRESSURES IMPROVING. PATIENT NEEDS CONSTANT REASSURANCE. TOUCH CALL LIGHT IN REACH, PATIENT USUALLY JUST CALLS OUT.
--- NOTE | 2020-06-29 14:05 | NUR ---
Echocardiogram completed.
[2020-06-29 17:02] LABS: Anion Gap 8 mmol/L (6-16); Blood Urea Nitrogen 11 mg/dL (8-24); Bun/Creatinine Ratio 15.8 (12.0-20.0); CO2, Blood 21 mmol/L (21-32); Calcium, Blood 8.7 mg/dL (8.5-10.1); Chloride, Blood 117 mmol/L (98-108); Glomerular Filtration Rate >60 (60-); Glucose, Blood 129 mg/dL (70-99); Potassium, Blood 2.8 mmol/L (3.5-5.5); Sodium, Blood 146 mmol/L (136-145)
--- NOTE | 2020-06-29 19:23 | NUR ---
SHIFT SUMMARY ASSUMED CARE OF PT THIS AM AT APPROX 0700, PT IN RESPIRATORY DISTRESS; RESP RATE 50'S ON 15L O2 VIA HIGH FLOW NC SPOW 86-88%; PLACED PT ON NRB SPO2 AT 95%; LS COARSE, DIM BASES; MOIST COUGHT NOTED. NEW ORDERS FOR LASIX, AND TO DISCONTINUE IV FLUIDS. LS IMPROVING T/O SHIFT, TITTRATED TO 3L O2 VIA NC. COUGH CONTIUES TO BE MOIST BUT IMPROVED WELL. PT ALERT, NODING YES/NO, ATTEMPTING TO VERBAL ANSWER QUESTIONS BUT SPEECH UNCOMPREHENSIBLE; PROVIDED PICTURE BOARD TO ASSIST WITH COMMUNICATION. PT ORIENTED, FOLLOWING DIRECTIONS. PT REPORTS FLANK PAIN, MEDICATED PER EMAR T/O SHIFT. REPORTS NAUSEA, MEDICATED WITH ZOFRAN x1. PT MOTHER AT BEDSIDE THIS AFTERNOON, REPORTS PTS ABD IS DISTENDED AND THE UROSTOMY IS PROLAPSED; NOTIFIED DR CHERRY; NO NEW ORDERS DURING SHIFT. PT DENIES DIZZINESS/LIGHTHEADEDNESS. UROSTOMY IS PROTRUDING 2-3 INs AT TIMES, APPLIANCE CHANGED DURING SHIFT AND CATH BAG ATTACHED FOR DRAINING. NEPHOSTOMY HAS HAD NO OUTPUT DURING SHIFT AND PREVIOUS DAY, NOTIFIED DR CHERRY, NO NEW ORDERS. BP SOFT BUT STABLE, T-MAX 100.5, MEDICATED THIS AM WITH TYLENOL, HR SINUS TACH, RESP RATE 20-30'S FOR MAJORITY OF SHIFT. NO OTHER ACUTE CHANGES NOTED. REPORT GIVEN TO ONCOMING RN.
[2020-06-30 03:42] LABS: BASOPHILS ABSOLUTE AUTO 0.01 K/mm3 (0.00-0.23); BASOPHILS PERCENT AUTO 0 % (0-2); EOSINOPHILS ABSOLUTE AUTO 0.23 K/mm3 (0.00-0.68); EOSINOPHILS PERCENT AUTO 2 % (0-6); Hematocrit 26.8 % (33.0-51.0); Hemoglobin 9.3 g/dL (11.5-16.0); IMMATURE GRAN PERCENT AUTO 2 % (0-1); LYMPHOCYTES ABSOLUTE AUTO 2.44 K/mm3 (0.84-5.20); LYMPHOCYTES PERCENT AUTO 25 % (21-46); MONOCYTES ABSOLUTE AUTO 1.17 K/mm3 (0.16-1.47); MONOCYTES PERCENT AUTO 12 % (4-13); Mean Corpuscular HGB 29.2 pg (26.0-34.0); Mean Corpuscular HGB Conc 34.7 g/dL (31.5-36.5); Mean Corpuscular Volume 84 fL (80-100); Mean Platelet Volume 9.5 fL (9.1-12.4); NEUTROPHILS ABSOLUTE AUTO 5.83 K/mm3 (1.96-9.15); NEUTROPHILS PERCENT AUTO 59 % (41-73); Platelet Count 199 K/mm3 (150-400); RDW Coefficient Variation 15.4 % (11.7-14.2); RDW Standard Deviation 47.1 fL (35.1-46.3); Red Blood Cell Count 3.18 M/mm3 (3.80-5.20); White Blood Cell Count 9.88 K/mm3 (4.00-11.30)
[2020-06-30 04:01] LABS: Alanine Aminotransfer (ALT/SGP 19 U/L (12-78); Albumin, Blood 2.9 g/dL (3.4-5.0); Alk Phos 101 U/L (50-136); Anion Gap 6 mmol/L (6-16); Aspartate Aminotrans (AST/SGOT 22 U/L (12-37); Bilirubin, Total 1.1 mg/dL (0.1-1.0); Blood Urea Nitrogen 11 mg/dL (8-24); Bun/Creatinine Ratio 17.1 (12.0-20.0); CO2, Blood 27 mmol/L (21-32); Calcium, Blood 8.1 mg/dL (8.5-10.1); Chloride, Blood 113 mmol/L (98-108); Creatinine, Blood 0.64 mg/dL (0.40-1.00); Globulin, Blood 2.9 g/dL (2.2-4.0); Glomerular Filtration Rate >60 (60-); Glucose, Blood 109 mg/dL (70-99); Potassium, Blood 2.9 mmol/L (3.5-5.5); Sodium, Blood 146 mmol/L (136-145); Total Protein, Blood 5.8 g/dL (6.4-8.2)
--- NOTE | 2020-06-30 08:03 | NUR ---
INITIAL ASSESSMENT: PATIENT IS RESTING IN BED PATIENT IS LETHARGIC BUT TACHYPNEC. PATIENT IS ABLE TO PROVIDE ON WORD ANSWERS BUT IS VERY DIFFICULT TO UNDERSTAND. PT HAS HX OF CEREBRAL PLASY, LEGS ARE FLACCID, HANDS ARE CONTRACTED. HR ST IN THE LOW 100S, BIOX IS CURRENTLY 86 WITH 5L VIA NC. PATIENT IS CURRENTLY MOUTH BREATHING, PATIENT ENCOURAGED TO SLOW HER BREATHING AND BREATHE IN THROGH HER NOSE AND OUT THROUGH HER MOUTH. OXYGEN TURNED UP TO 8L VIA NC, PATIENT FINALLY CAME UP TO 90%. BT+. PATIENT REPOSITIONED TO HER LEFT SIDE. PATIENT HAS NEPHROSTOMY TO RIGHT FLANK WITH DRESSING, DRESSING REINFORCED WITH MEFIX CDI. MINIMAL CLEAY LIGHT YELLOW DRAINAGE NOTED. PATIENT HAS UROSTOMY TO RIGH ABDOMEN, STOMA PROTROUDING PINK, DRAINING LIGHT CLEAR YELLOW URINE. NEW MEPILEX PLACED FOR PREVENTION TO COCCYX. PATIENT GIVEN ZOFRAN PER REQUEST. SOFT TOUCH CALL LIGHT IN REACH. PATIENT DENIES OTHER NEEDS AT THIS TIME, WILL CONTINUE TO MONITOR.
--- NOTE | 2020-06-30 10:27 | NUR ---
PATIENT HAS BEEN RESTING, THIS RN WAS ABLE TO TITRATE HER OXYGEN DOWN TO 4L VIA NC BIOX 95-96%. PATIENT IS NO LONGER TACHYPNEC AND SEEMS TO BE RESTING COMFORTABLY. CHARO ORDERED FOR THIS AM, I WILL HOLD OFF UNITIL PATIENT IS MORE ALERT. ROBOTICS TECHNICIAN REPOSITIONED PATIENT.
--- NOTE | 2020-06-30 12:57 | NUR ---
VSS. BLOOD PRESSURE BETTER. PATIENT MEDICATED WITH NORCO FOR PAIN AND COMPAZINE FOR NAUSEA. PATIENT HAS BEEN TITRATED DOWN TO RA BIOX 94%. PATIENT RESTING COMFORTABLY NO NEEDS AT THIS TIME. SOFT TOUCH CALL LIGHT IN REACH. WILL CONTINUE TO MONITOR.
--- NOTE | 2020-06-30 16:14 | NUR ---
VSS. DR ROSALES HAS BEEN BY TO SEE THE PATIENT. ORDER FOR SPUTUM SAMPLE, DR. ROSALES WOULD LIKE TO OBTAIN A SPUTUM STAMPLE VIA NT SUCTION THE PATIENT HAS A VERY WEAK COUGH. PATIENT DENIES NEEDS AND HAS BEEN MORE ALERT THIS AFTERNOON. UPDATE PROVIDED TO HER MOTHER OVER THE PHONE. AMITA PATINO AT BEDSIDE TO ASSIST THE PATIENT TO EAT. PATIENT DENIES OTHER NEEDS AT THIS TIME. RT AT BEDSIDE TO OBTAIN SPUTUM SAMPLE. WILL CONTINUE TO MONITOR.
--- NOTE | 2020-06-30 17:57 | NUR ---
THE PATIENT HAS DONE REALLY WELL T/O THE SHIFT. THIS RN WAS ABLE TO WEAN HER FROM 5L NC DOWN TO RA. PAIN HAS BEEN WELL CONTROLLED WITH PO MEDS AND USING IV FOR BREAKTHROUGH. HER MOTHER WAS GIVEN AN UPDATE. DR. ROSALES CAME BY TO SEE THE PATIENT. SPUTUM SAMPLE WAS SENT VIA NT SUCTION SAMPLE. PATIENT HAS BEEN MORE ALERT THIS AFTERNOON AND VERY INTERACTIVE WITH STAFF. NO ACUTE CHANGES THIS SHIFT, WILL REPORT TO ONCOMING RN.
--- NOTE | 2020-06-30 22:45 | NUR ---
CARE ASSUMPTION PT A/O TO SELF, FOLLOWING DIRECTIONS, AND PLACE. PT IS ABLE TO COMMUNICATE ONE WORD RESPONSES THAT ARE DIFFICULT TO UNDERSTAND. PT HAS BILATERAL HAND CONTRACTURES. PT LEGS ARE FLACID. VSS. SPO2 >90% ON 2L NC. TELE SR-ST HR 90S-110. PT HAS RIGHT NEPHROSTOMY THAT IS INTACT AND DRAINING. PT HAS RIGHT UROSTOMY IT IS PINK AND PROTROUDING, DRAINAGE IS CLEAR. PT CALL LIGHT WITHIN REACH. PT REPORTS LEFT SIDE FLANK PAIN. PT RECEIVED PAIN MED PER EMAR, PT STATES THIS HELPED RELIEVE HER PAIN. WILL CONTINUE TO MONITOR AND PROVIDE CARE.
--- NOTE | 2020-07-01 05:32 | NUR ---
SHIFT SUMMARY PT A/O X4. PT IS SLOW TO RESPOND AND DIFFICULT TO UNDERSTAND. PT VSS WITH SOFT BP. PT IS ON 2L NC AND SPO2 >90%. TELE SR-SINUS TACH 98. PT REPORTS LEFT FLANK PAIN AT 9/10. PT RECEIVED PAIN MEDICATION PER EMAR AND UPON REASSESSMENT PT STATES PAIN IS 1/10. PT REPORTS NAUSEA AND RECEIVED ZOFRAN PER EMAR TO PROVIDE RELIEF. PT NEPHROSTOMY DRAINING ON R FLANK AND DRESSING INTACT. PT UROSTOMY TO RIGHT ABD, STOMA IS PINK AND PROTROUDING, DRAINING LIGHT YELLOW URINE. SOFT CALL LIGHT AND CALL LIGHT WITHIN REACH. Q2 HR REPOSTIONING THROUGHOUT THIS SHIFT. WILL CONTINUE TO MONITOR AND PROVIDE CARE UNTIL HAND OFF WITH DAY SHIFT.
[2020-07-01 05:49] LABS: Anion Gap 4 mmol/L (6-16); Blood Urea Nitrogen 15 mg/dL (8-24); Bun/Creatinine Ratio 24.8 (12.0-20.0); CO2, Blood 30 mmol/L (21-32); Calcium, Blood 8.3 mg/dL (8.5-10.1); Chloride, Blood 110 mmol/L (98-108); Creatinine, Blood 0.61 mg/dL (0.40-1.00); Glomerular Filtration Rate >60 (60-); Glucose, Blood 101 mg/dL (70-99); Potassium, Blood 3.2 mmol/L (3.5-5.5); Sodium, Blood 144 mmol/L (136-145)
--- NOTE | 2020-07-01 11:50 | NUR ---
UPDATE PHYSICIAN NOTIFIED OF PT'S LOW BP. MAP AT 67. ORDERS TO BE PROVIDED PER PHYSICIAN.
[2020-07-01 13:56] LABS: SARS-Cov-2 (COVID-19) PCR, MMC NEGATIVE (NEGATIVE)
--- NOTE | 2020-07-01 17:36 | NUR ---
PT TO PROCEDURE PT TO DAY SURGERY WITH RN'S BY BED.
--- NOTE | 2020-07-01 18:47 | NUR ---
UPDATE PT BACK TO UNIT FROM DAY SURGERY. VS STABLE.
--- NOTE | 2020-07-01 19:18 | NUR ---
SHIFT SUMMARY PT ALERT AND ORIENTED X 4. HR STABLE. BP HYPOTENSIVE AT TIMES. MEDICATION ORDERED AND GIVEN PER PHYSICIAN ORDER. MAP ABOVE 65. NO CP OR PRESSURE REPORTED. PT REPORTS PAIN. MEDICATED PER EMAR. HEAT APPLIED TO PAINFUL AREAS. PT REPORTS RELIEF. PT TURNED Q 2 HRS. NEPHROSTOMY AND UROSTOMY DRAINING. 2 RN CONFIRMATION FOR PT TO HAVE PROCEDURE THROUGH PT'S POA. SEE CHART. PT TO DAY SURGERY FOR R NEPHROSTOMY TUBE REPLACEMENT. PT VS STABLE UPON ARRIVAL BACK TO UNIT. WILL UPDATE PT'S MOTHER PER PT REQUEST PRIOR TO END OF SHIFT. REPORT GIVEN TO NIGHTSHIFT RN.
--- NOTE | 2020-07-01 22:19 | NUR ---
CARE ASSUMPTION PT A/OX4. PT IS SLOW TO RESPOND, AND DIFFICULT TO UNDERSTAND. VSS. SPO2 >90% ON RA. TELE SINUS TACH MAX 110. PT REPORTS PAIN ON RIGHT FLANK. PT PROVIDED PAIN MEDICATION PER EMAR ORDER. PT STATES THIS PROVIDED RELIEF. UROSTOMY RIGHT ABD, PINK STOMA, AND DRAINING YELLOW URINE. NEPHROMSTOMY IN PLACE ON RIGHT SIDE, INTACT, AND DRAINING. WILL CONTINUE TO MONITOR AND PROVIDE CARE.
[2020-07-02 04:50] LABS: Hematocrit 26.2 % (33.0-51.0); Hemoglobin 8.8 g/dL (11.5-16.0); Mean Corpuscular HGB 28.7 pg (26.0-34.0); Mean Corpuscular HGB Conc 33.6 g/dL (31.5-36.5); Mean Corpuscular Volume 85 fL (80-100); Mean Platelet Volume 10.1 fL (9.1-12.4); Platelet Count 318 K/mm3 (150-400); RDW Coefficient Variation 15.2 % (11.7-14.2); RDW Standard Deviation 47.7 fL (35.1-46.3); Red Blood Cell Count 3.07 M/mm3 (3.80-5.20); White Blood Cell Count 9.23 K/mm3 (4.00-11.30)
[2020-07-02 05:20] LABS: Alanine Aminotransfer (ALT/SGP 20 U/L (12-78); Albumin/Globulin Ratio 0.9 (0.8-1.8); Alk Phos 93 U/L (50-136); Anion Gap 5 mmol/L (6-16); Aspartate Aminotrans (AST/SGOT 21 U/L (12-37); Bilirubin, Total 0.5 mg/dL (0.1-1.0); Blood Urea Nitrogen 14 mg/dL (8-24); Bun/Creatinine Ratio 25.1 (12.0-20.0); CO2, Blood 27 mmol/L (21-32); Calcium, Blood 8.4 mg/dL (8.5-10.1); Chloride, Blood 109 mmol/L (98-108); Creatinine, Blood 0.56 mg/dL (0.40-1.00); Globulin, Blood 3.4 g/dL (2.2-4.0); Glomerular Filtration Rate >60 (60-); Glucose, Blood 94 mg/dL (70-99); Magnesium, Blood 1.7 mg/dL (1.6-2.4); Potassium, Blood 3.8 mmol/L (3.5-5.5); Sodium, Blood 141 mmol/L (136-145); Total Protein, Blood 6.4 g/dL (6.4-8.2)
--- NOTE | 2020-07-02 05:21 | NUR ---
SHIFT SUMMARY P AO X4. VSS. SPO2 >90% ON RA. TELE SINUS TACH MAX 110. PT REPORTS RIGHT FLANK PAIN THAT WAS RELIEVED BY PAIN MED PER EMAR ORDER. PT UROSTOMY, PINK AND PROTROUDING, DRAINING WITH GRAVITY, CLEAR YELLOW URINE. PT NEPHROSTOMY DRAINING WITH GRAVITY. Q2 HR REPOSTIONING THROUGHOUT THIS SHIFT. CALL LIGHT WITHIN REACH, AND SOFT CALL LIGHT WITHIN REACH. NO ACUTE CHANGES DURING THIS SHIFT. WILL CONTINUE TO MONITOR AND PROVIDE CARE UNTIL HAND OFF WITH DAY SHIFT.
--- NOTE | 2020-07-02 15:09 | NUR ---
Supportive visit this afternoon. Pt resting in bed upon arrival. Pt denies pain, dyspnea, anxiety, and nausea at this time. Listened as Pt reports hope to be D/C soon. Discussed video game she is playing and states game is more like a story. Pt enjoys being able to choose the hair color, hair style, and clothing for each charater on the game. Continued therapeutic listening. Pt reports no other concerns at this time. Spoke with house principal Gabe prior to visit and discussed case. Palliative Care will remain available.
--- NOTE | 2020-07-02 19:33 | NUR ---
PT RECEIVED NORCO 3X AND ACETAMINOPHEN 2X FOR CONSTANT 10/10 FLANK PAIN; PT REPORTED ACID REFLUX AND WANTED TUMS; DR. CHERRY NOT REACHABLE BY PHONE OF 1813; SITE CARE PERFORMED ON NEPHROSTOMY INSERTION AREAS; PT BEGAN MENSES CYCLE; PT DENIED ADDITIONAL CONCERNS AT THIS TIME.
--- NOTE | 2020-07-02 21:27 | NUR ---
CARE ASSUMPTION PT A&O X4. PT IS HAPPY, CALM, AND COOPERATIVE. VSS. SPO2 >90% ON RA. PT DENIES ANY SHORTNESS OF BREATH. TELE SR/ST 90S. PT DENIES ANY CHEST PAIN. PT REPORTS PAIN AND RECEIVED PAIN MED PER ORDER FROM EMAR. PT REPORTS HEART BURN AND RECEIVED PEPCID WITH HER NIGHT TIME MEDS PER ORDER FROM EMAR. PT REPOSITIONED TO RIGHT SIDE. NEPHROSTOMY AND UROSTOMY INTACT AND DRAINING WITH GRAVITY. CALL LIGHT AND SOFT CALL LIGHT WITHIN REACH. WILL CONTINUE TO MONITOR AND PROVIDE CARE.
[2020-07-03 04:15] LABS: Hematocrit 29.2 % (33.0-51.0); Hemoglobin 9.8 g/dL (11.5-16.0); Mean Corpuscular HGB 28.7 pg (26.0-34.0); Mean Corpuscular HGB Conc 33.6 g/dL (31.5-36.5); Mean Corpuscular Volume 85 fL (80-100); Platelet Count 392 K/mm3 (150-400); RDW Coefficient Variation 14.9 % (11.7-14.2); RDW Standard Deviation 46.3 fL (35.1-46.3); Red Blood Cell Count 3.42 M/mm3 (3.80-5.20); White Blood Cell Count 9.93 K/mm3 (4.00-11.30)
[2020-07-03 05:33] LABS: Ferritin, Serum 185 ng/mL (8-252); Iron Serum 30 ug/dL (50-170); Total Iron Binding Capacity 133 ug/dL (250-450)
[2020-07-03 05:34] LABS: Anion Gap 5 mmol/L (6-16); Blood Urea Nitrogen 14 mg/dL (8-24); CO2, Blood 26 mmol/L (21-32); Calcium, Blood 8.9 mg/dL (8.5-10.1); Chloride, Blood 106 mmol/L (98-108); Creatinine, Blood 0.64 mg/dL (0.40-1.00); Glomerular Filtration Rate >60 (60-); Glucose, Blood 96 mg/dL (70-99); Percent Saturation 22.6 % (15.0-50.0); Potassium, Blood 3.9 mmol/L (3.5-5.5); Sodium, Blood 137 mmol/L (136-145)
--- NOTE | 2020-07-03 06:04 | NUR ---
SHIFT SUMMARY PT A&O X4. PT HAS BEEN CALM, COOPERATIVE, HAPPY, TEARFUL, AND ANXIOUS. VSS. SPO2 >90% ON RA. TELE SR 80S. PT REPORTS RIGHT FLANK PAIN. PT RECEIVED PAIN MED PER EMAR ORDER. PT STATES THIS PROVIDED RELIEF. PT REPORTS NAUSE AND RECEIVED ZOFRAN PER EMAR ORDER. PT STATES THIS PROVIDED RELIEF. PT HAS BILATERAL HAND CONTRACTURES. PT LEGS ARE FLACID WITH CONTRACTURES. PT Q2 HR REPOSITIONING. PT Q4 NEURO CHECKS. UROSTOMY AND NEPHROSTOMY INTACT AND DRAINING WITH GRAVITY, YELLOW/CLEAR APPERANCE DRAINAGE. NO ACUTE CHANGES THIS SHIFT. WILL CONTINUE TO MONITOR AND PROVIDE CARE UNTIL HAND OFF WITH DAY SHIFT.
--- NOTE | 2020-07-03 07:34 | NUR ---
Bedside report from SN Krista and AMITA Bradford. The pt appears to be sleeping comfortably, respirations even and unlabored.
--- NOTE | 2020-07-03 11:49 | NUR ---
Pt awoke briefly this morning for breakfast, which was given to her by the PCT, and then for repositioning and linen change. Afterwards she said that she was tired and wanted to sleep. She had been given NOrco just before the earlier activity, and at this time awakens easily to conversation and taking vital signs, but still wants to sleep.
--- NOTE | 2020-07-03 13:57 | NUR ---
Assisted pt to reposition into supine position, HOB elevated as high as possible for speech therapist to evaluate.
--- NOTE | 2020-07-03 15:08 | NUR ---
Pt's mom on face time with the pt. I spoke with the mom, and she states pt takes hydrocodone at home for pain, and that she has to be given EX Lax in order to have a bowel movement. Call to DR. Rodriguez to request miralax, which was given with colace at this time for bowel care.
--- NOTE | 2020-07-03 16:11 | NUR ---
Pt c/o feeling nauseated and painful in her right lower back, near nephrostomy tube site.
--- NOTE | 2020-07-04 05:57 | NUR ---
SHIFT SUMMARY PT COMFORTABLE AND IN GOOD SPIRITS AT BEGINNING OF SHIFT. DEVELOPED NAUSEA PRIOR TO EVENING MED PASS AND C/O "HEARTBURN". HAD EPISODE OF LARGE AMOUNT OF EMESIS, ADMIN OF ZOFRAN PER ORDER WITH LITTLE TO NO RELIEF. X2 MORE EPISODES OF EMESIS FOLLOWING DOSE OF ZOFRAN. PT C/O PAIN OVER R NEPHROSTOMY SITE AND R UROSTOMY. ADMIN OF IV COMPAZINE FOLLOWING PO DOSE OF NORCO SEEMED TO RESOLVE N/V FOR THE NIGHT AND PT SLEPT WITHOUT FURTHER INCIDENT.
--- NOTE | 2020-07-04 08:12 | NUR ---
Report from hourly shift that pt had 2 episodes of large amounts of emesis. this morning she denies nausea, asking for water to drink. States not hungry, and c/o pain 3/10 on her right flank, nephrostomy site. Sitting up in bed, talking with mom on her device. States that last night she also had burning like her "tummy was on fire". She refused dinner last night. Konstantin has hypoactive bowel tones, and it is soft, non-tender to gentle palpation. Per records, she last had a bowel movement on the 28 June. Pt also reports to me that she had a BM when she was "in intensive care".
--- NOTE | 2020-07-04 13:59 | NUR ---
Mikayla is sitting up in bed, watching game on her device. Has no complaints, no evidence of discomfort or anxiety. She has had a large brown soft bowel movement today, and nephrostomy and urostomy are both draining clear yellow urine. She declined lunch, stated that her mother is bringing her something to eat from [employer]. She has not needed any pain medication nor anti emetics this shift.
--- NOTE | 2020-07-04 15:15 | NUR ---
Telephone report was given to Tavo Abdul RN at this time. Pt's mom is in the room, and I explained to her that facility planner has communicated that [facility] has tentatively accepted the pt to be transferred to their care on Tuesday, with possibility of the pt being a long-term resident if [facility] does not accept the pt to one of their homes. The pt will meanwhile be transferred to medical floor room 362.
--- NOTE | 2020-07-04 16:27 | NUR ---
received pt from [facility] about 1530. pt shayna schmidt. no c/o pain. set up room with mom . suction set up for oral care. pt states comfortable. urostomy in place with bag attached to rlq of abd. has nephrostomy tube in place on rt. flofwing to bag sitting at side. bed in low position, soft call touch in place on bed. bed in low position, cll lite in reach, calls approp. mom at bedside. agrees to make needs known.
--- NOTE | 2020-07-04 16:32 | NUR ---
pt roxana guillen a/o. speaks with shayna jane. mom at bedside. no new concerns noted since transfer from [facility]. bed in low position, call lite in reach, calls approp
[2020-07-05 04:53] LABS: BASOPHILS ABSOLUTE AUTO 0.04 K/mm3 (0.00-0.23); BASOPHILS PERCENT AUTO 1 % (0-2); EOSINOPHILS ABSOLUTE AUTO 0.05 K/mm3 (0.00-0.68); EOSINOPHILS PERCENT AUTO 1 % (0-6); Hematocrit 27.3 % (33.0-51.0); IMMATURE GRAN ABSOLUTE AUTO 0.19 K/mm3 (0.00-0.10); IMMATURE GRAN PERCENT AUTO 3 % (0-1); LYMPHOCYTES ABSOLUTE AUTO 3.68 K/mm3 (0.84-5.20); LYMPHOCYTES PERCENT AUTO 52 % (21-46); MONOCYTES ABSOLUTE AUTO 0.51 K/mm3 (0.16-1.47); MONOCYTES PERCENT AUTO 7 % (4-13); Mean Corpuscular HGB 28.7 pg (26.0-34.0); Mean Corpuscular Volume 87 fL (80-100); Mean Platelet Volume 9.6 fL (9.1-12.4); NEUTROPHILS PERCENT AUTO 37 % (41-73); Platelet Count 521 K/mm3 (150-400); RDW Coefficient Variation 14.8 % (11.7-14.2); RDW Standard Deviation 47.4 fL (35.1-46.3); Red Blood Cell Count 3.14 M/mm3 (3.80-5.20); White Blood Cell Count 7.07 K/mm3 (4.00-11.30)
[2020-07-05 05:15] LABS: Albumin, Blood 3.4 g/dL (3.4-5.0); Anion Gap 5 mmol/L (6-16); Blood Urea Nitrogen 11 mg/dL (8-24); Bun/Creatinine Ratio 17.3 (12.0-20.0); CO2, Blood 24 mmol/L (21-32); Chloride, Blood 107 mmol/L (98-108); Creatinine, Blood 0.64 mg/dL (0.40-1.00); Glomerular Filtration Rate >60 (60-); Glucose, Blood 95 mg/dL (70-99); Phosphorus, Blood 2.9 mg/dL (2.5-4.9); Potassium, Blood 3.9 mmol/L (3.5-5.5); Sodium, Blood 136 mmol/L (136-145)
--- NOTE | 2020-07-05 06:21 | NUR ---
CLINICAL ASST SUMMARY PT A/O X4, GARBLED SPEECH. SLEPT WELL TONIGHT. DENIES PAIN, NAUSEA, ABD CRAMPING, SOB. ROOM AIR, MAINTAINING GOOD 02 SATS. PT HAD 2 EPISODES OF DIARRHEA OVERNIGHT. PT RECIEVED MIRLAX IN AM SHIFT ON 07/04. BOWEL CARE HELD IN NOC SHIFT 07/04 PT HAD 3 DIARRHEA EPISODES IN THE AM SHIFT AFTER THIS WAS GIVEN. PT IS PLEASANT AND COOPERATIVE. USES CALL LIGHT APPROPRIATELY. BILATERAL HANDS AND FEET ARE CONTRACTED AT BASELINE. CALL LIGHT WITHIN REACH.
--- NOTE | 2020-07-05 18:25 | NUR ---
SHIFT SUMMARY. A&OX3, PLEASANT AND COOPERATIVE WITH CARE, SOFT TOUCH CALL LIGHT UTILIZED AND OPERATED WELL BY PT. UROSTOMY AND NEPHROSTOMY PATENT AND DRAINING. NEPHROSTOMY DRESSING CHANGED AFTER BEING CLEANSED WITH WOUND CLEANSER AND STERILE GAUZE. PT DENIES SOB, N/V. PT REQUIRED ONE DOSE OF NORCO FOR PAIN SECONDARY TO UROSTOMY PAIN, IT WAS OBSERVED THAT URSOSTMY BAG WAS NOT DRAINING VERY WELL AND URINE WAS AGAINST STOMA, PAIN RELIEVED AFTER MEDICATION AND URINE NOT POOLING AROUND STOMA IN BAG. PT HAD 2 INCONTINENT BMS THIS SHIFT AFTER MIRALAX WAS HELD, STOOL IS FOOD AND NOT LIQUID. NO NEW CHANGES OR CONCERNS.
--- NOTE | 2020-07-06 04:50 | NUR ---
INGOT PASSER SUMMARY PT A/O X4. GARBLED SPEECH, WHICH IS BASELINE. PLEASANT AND COOPERATIVE. DENIES PAIN, NAUSEA, SOB. RIGHT NEPHROSTOMY TUBE AND RIGHT UROSTOMY DRAINING CLEAR YELLOW URINE. ABLE TO EXPRESS NEEDS APPROPRIATELY. SLEPT WELL TONIGHT. NO ACUTE CHANGES. TELE SR IN THE 70S. CALL LIGHT WITHIN REACH.
--- NOTE | 2020-07-06 18:06 | NUR ---
SHIFT SUMMARY. PT REPORTED PAIN TO UROSTOMY SITE ONCE THIS SHIFT, BAG DRAINED AND PRN NORCO GIVEN WITH RELIEF. PT C/O HEARTBURN, PRN TUMS GIVEN WITHOUT RELIEF, PRN ZOFRAN GIVEN AND NAUSEA/HEARTBURN RESOLVED. MOTHER AT BEDSIDE THIS AFTERNOON. UROSTOMY AND NEPHROSTOMY PATENT AND DRAINING. NO NEW CHANGES OR CONCERNS.
--- NOTE | 2020-07-07 04:29 | NUR ---
PATIENT SUPPORT ASSISTANT SUMMARY PT A/O X4 WITH GARBLED SPEECH AT BASELINE. SLEPT WELL TONIGHT. ABLE TO MAKE NEEDS KNOWN. DENIES PAIN, NAUSEA, SOB. PLEASANT AND COOPERATIVE. NO ACUTE CHANGES. VSS. NSR IN THE 60'S THIS AM PER ICE CREAM MAN. CURRENTLY ASLEEP IN BED, CALL LIGHT WITHIN REACH. WILL CONTINUE TO MONITOR.
--- NOTE | 2020-07-07 10:19 | NUR ---
NEPHROSTOMY TUBE DRESSING RE-ENFORCED DURING BEDBATH, NEPHROSTOMY DRESSING APPEARED TO BE PEELING BACK. SECOND TEGADERM PLACED OVERTOP TO FURTHER ENFORCE THE DRESSING.
--- NOTE | 2020-07-07 16:20 | NUR ---
REFUSAL TO FOLLOW NECTAR THICK. ST IN TO SEE THE PT THIS AFTERNOON. YADY HAYNES WORKED WITH PT AND CONFIRMED THAT PT NEEDS TO REMAIN ON NECTAR THICK LIQUIDS AND SWALLOWING MEDS WHOLE IN APPLESAUCE FOR SAFE SWALLOWING. PTS MOTHER HAS BEEN BRINGING IN OUTSIDE FOOD AND DRINK DISPITE DIET RECOMENDATIONS. PTS MOTHER, EDNA BROUGHT PT IN REGULAR SODA AND REFUSED FOR THE AIDE TO THICKEN IT. THIS RN IN TO EXPLAIN THE IMPORTANCE OF FOLLOWING THE RECOMENDATIONS OF THE SPEECH THERAPIST, INCLUDING ASPIRATION PNA AND THE RISK OF THIN LIQ. PTS MOTHER STATED SHE UNDERSTOOD. WHEN THIS RN ASKED TO THICKEN THE PTS SODA, DENA AGAIN REFUSED. PT SWALLOWED MEDS WHOLE IN APPLESAUCE EARLIER TODAY. WHEN MOTHER CAME TO ROOM, PT REFUSED TO SWALLOW MEDS WITH APPLESAUCE AND WOULD ONLY SWALLOW WHEN HER MOTHER GAVE HER WATER. AGAIN IMPORTANCE OF FOLLOWING SWALLOW PRECAUTIONS WAS RELAYED TO PT AND HER MOTHER.
--- NOTE | 2020-07-07 17:44 | NUR ---
SHIFT SUMMARY PATIENT ALERT AND ORIENTED X4. PATIENT HAS BEEN CALM AND COOPERATIVE WITH CARE. PATIENT TAKES MEDS WHOLE IN APPLESAUCE. FOAM PADDING PLACED ON BUTTOCKS TO PROVIDE CUSHION FOR PRESSURE WOUND. REINFORCED NEPHROSTOMY TUBE THIS SHIFT. PATIENTS MOTHER CHANGED THE UROSTOMY APPLIANCE THIS SHIFT. UROSTOMY AND NEPHROSTOMY ARE INTACT AND DRAINING JEFFREY COLOR URINE WITH GRAVITY. NO ACUTE CHANGES THIS SHIFT. VITAL SIGNS REVIEWED.
--- NOTE | 2020-07-07 18:06 | NUR ---
PRODUCT AMBASSADOR DOC REVIEW THIS RN ASSESSED THE PT. THIS RN REVIEWED STUDENTS DOC AND ASSESSMENT AND AGREES WITH BOTH.
--- NOTE | 2020-07-08 04:28 | NUR ---
SHIFT SUMMARY- PT. A&OX4, HAD NO COMPLAINTS DURING THE NIGHT. R NEPHROSTOMY AND UROSTOMY IN PLACE. PT. DENIED ANY PAIN OR DISCOMFORT T/O THE NIGHT. ASLEEP MOST OF THE NIGHT, NO APPARENT DISTRESS NOTED. PT. REPOSITIONED FOR COMFORT AND PRN, VSS. CALL LIGHT WITHIN REACH AND SIDE RAILS UPX2. WILL CONT TO MONITOR.
[2020-07-08 13:33] LABS: SARS-Cov-2 (COVID-19) PCR, MMC NEGATIVE (NEGATIVE)
[2020-07-08] MEDS ORDERED: Acetaminophen325 M1 PO (13:50)
[2020-07-08] MEDS ORDERED: BISA10S PR (13:50)
[2020-07-08] MEDS ORDERED: MIRALAX17 GM PO (13:51)
[2020-07-08] MEDS ORDERED: Midodrine HCl2.5 MG PO (13:51)
--- NOTE | 2020-07-08 18:00 | NUR ---
DISCHARGE DISCHARGE TO [facility]. PACKET WITH PHOTOGRAPHIC PROCESS WORKER, HARD COPY SCRIPTS INSIDE. PATIENT TRANSFERED VIA GURNEY. BELONGINGS WITH PATIENT. IV REMOVED WITHOUT ISSUE. REPORT CALLED TO JAGUAR AT [facility].
[2020-07-19] MEDS ORDERED: PRAM.125 PO (15:57)
[2020-07-19] MEDS ORDERED: ONDA4 PO (15:58)
[2020-07-19] MEDS ORDERED: Keflex500 MG PO (18:00)
== END 2020-07-08 17:39 | DRG 698 ==
LOC: ER 16:15 → PCU 22:05 → ERHOLD 22:05 → ICUE 22:05 → PCU 06-28 11:15 → MEDS 07-04 15:37
PROVIDERS: Family Medicine; Internal Medicine; Internal Medicine Critical Care Medicine; Nurse Practitioner Acute Care; Pharmacist; Physician Assistant; Radiology Diagnostic Radiology; ADMIT Internal Medicine
PROC: 3E033XZ Introduction of Vasopressor into Peripheral Vein, Percutaneous Approach (ICD-10-PCS; principal; 2020-06-25)
PROC: 02HV33Z Insertion of Infusion Device into Superior Vena Cava, Percutaneous Approach (ICD-10-PCS; 2020-06-26)
PROC: 0T25X0Z Change Drainage Device in Kidney, External Approach (ICD-10-PCS; 2020-07-01)
PROC: BT11YZZ Fluoroscopy of Right Kidney using Other Contrast (ICD-10-PCS; 2020-07-01)
DX: T83.592A Infection and inflammatory reaction due to indwelling ureteral stent, initial encounter (principal); A41.51 Sepsis due to Escherichia coli [E. coli]; R65.21 Severe sepsis with septic shock; J18.9 Pneumonia, unspecified organism; E43 Unspecified severe protein-calorie malnutrition; E87.0 Hyperosmolality and hypernatremia; Z68.1 Body mass index [BMI] 19.9 or less, adult; N13.6 Pyonephrosis; E87.2 Acidosis; K21.9 Gastro-esophageal reflux disease without esophagitis; F41.9 Anxiety disorder, unspecified; E87.6 Hypokalemia; D47.3 Essential (hemorrhagic) thrombocythemia; D63.8 Anemia in other chronic diseases classified elsewhere; Z98.890 Other specified postprocedural states; Z79.899 Other long term (current) drug therapy; G80.9 Cerebral palsy, unspecified
CPT/HCPCS: 31720; 36415; 36556; 50387; 71045; 71250; 74176; 76770; 80048; 80053; 80069; 80202; 81001; 82533; 82607; 82728; 82746; 82803; 82947; 83540; 83550; 83605; 83735; 83880; 84100; 85025; 85027; 86140; 87040; 87070; 87077; 87086; 87186; 87205; 92526; 92610; 93306; 94762; 96365; 96366; 96367; 96375; 99152; 99153; 99285-25; A9270; C1751; C1769; C2625; J0295; J0696; J0780; J1650; J1940; J2250; J2405; J3010; J3370; J3480; J7030; J7040; J7050; J7060; J7070; P9046; Q9967; U0004

== ENCOUNTER 2020-08-05 22:47 | Emergency (ER) | payer OTHER ==
[~2020-08-05] VITALS: Ht 152.4 cm; Wt 43.1 kg
[~2020-08-05 22:47] MED LIST changes: +Acetaminophen325 M1 PO; +BISA10S PR; +HYDROCODONE-AC1 EA12 PO; +Keflex500 MG PO; +MELATONIN5 M1 PO; +MIRALAX17 GM PO; +Midodrine HCl2.5 MG PO; +ONDA4 PO
== END 2020-08-06 00:47 | disposition home or self-care (01) ==
LOC: ER 22:47
DX: T83.022A Displacement of nephrostomy catheter, initial encounter (principal); K21.9 Gastro-esophageal reflux disease without esophagitis; Z79.899 Other long term (current) drug therapy
CPT/HCPCS: 74018; 99283-25

== ENCOUNTER 2020-08-08 08:48 | Day surgery (SDC) | payer OTHER ==
[~2020-08-08] VITALS: Ht 152.4 cm; Wt 33.5 kg
--- NOTE | 2020-08-08 10:04 | NUR ---
PT BACK FROM PROCEDURE, NO SEDATION GIVEN. CAREGIVER HERE, DISCHARGE INSTRUCTIONS GONE OVER WITH CAREGIVER. CAREGIVER VERBALIZES UNDERSTANDING. PT DISCHARGED PER OWN W/C WITH CAREGIVER.
== END 2020-08-08 14:46 | disposition home or self-care (01) ==
LOC: MHTC 08:48
DX: T83.022A Displacement of nephrostomy catheter, initial encounter (principal); N13.30 Unspecified hydronephrosis; N31.9 Neuromuscular dysfunction of bladder, unspecified; G80.9 Cerebral palsy, unspecified; K21.9 Gastro-esophageal reflux disease without esophagitis; Z79.899 Other long term (current) drug therapy
CPT/HCPCS: 50387; C1769; C1887; C2625; Q9967

== ENCOUNTER 2020-08-09 18:34 | Emergency (ER) | payer OTHER ==
[~2020-08-09] VITALS: Ht 144.8 cm; Wt 31.8 kg
== END 2020-08-09 21:53 | disposition home or self-care (01) ==
LOC: ER 18:34
DX: S93.601A Unspecified sprain of right foot, initial encounter (principal); W23.0XXA Caught, crushed, jammed, or pinched between moving objects, initial encounter
CPT/HCPCS: 73610; 73620; 99283-25; A9270

== ENCOUNTER 2021-01-13 09:54 | Day surgery (SDC) | payer OTHER ==
[~2021-01-13 09:54] MED LIST changes: +ACIDOPHILUS1 EAC3 PO; +ACYC200 PO; +CLON1 PO; +PSEUDOEPHEDRINE30 M1 PO; +SULFAMETHOXAZO1 EAC1 PO
--- NOTE | 2021-01-13 12:20 | NUR ---
PT BACK TO RECOVERY ROOM VIA NASEEM. DROWSY, BUT EASILY ROUSES TO VERBAL STIMUL. VSS. NEPH TUBE WAS UNABLE TO BE REMOVED, PT WILL FOLLOW UP WITH UROLOGY.
--- NOTE | 2021-01-13 14:00 | NUR ---
IV DC'D, CATH INTACT. PT GIVEN DC INSTRUCTIONS, PT AND PT'S PARTS PROCESSOR WORKERS VERBALIZED UNDERSTANDING OF INSTRUCTIONS AND FOLLOW UP INFO. PT OUT TO CAR VIA WHEELCHAIR.
== END 2021-01-13 14:00 | disposition home or self-care (01) ==
LOC: MHTC 09:54
DX: N13.30 Unspecified hydronephrosis (principal); N31.9 Neuromuscular dysfunction of bladder, unspecified; G80.9 Cerebral palsy, unspecified; K21.9 Gastro-esophageal reflux disease without esophagitis; Z79.899 Other long term (current) drug therapy
CPT/HCPCS: 50387; 50431; 99152; 99153; C1769; J2250; J3010; J7040; Q9967

== ENCOUNTER 2021-01-15 10:35 | Emergency (ER) | payer OTHER ==
[~2021-01-15] VITALS: Ht 152.4 cm; Wt 49.9 kg
[2021-01-15 11:50] LABS: BASOPHILS ABSOLUTE AUTO 0.03 K/mm3 (0.00-0.23); BASOPHILS PERCENT AUTO 0 % (0-2); EOSINOPHILS ABSOLUTE AUTO 0.29 K/mm3 (0.00-0.68); EOSINOPHILS PERCENT AUTO 2 % (0-6); Hematocrit 42.2 % (33.0-51.0); Hemoglobin 14.5 g/dL (11.5-16.0); IMMATURE GRAN ABSOLUTE AUTO 0.04 K/mm3 (0.00-0.10); IMMATURE GRAN PERCENT AUTO 0 % (0-1); LYMPHOCYTES ABSOLUTE AUTO 2.28 K/mm3 (0.84-5.20); LYMPHOCYTES PERCENT AUTO 17 % (21-46); MONOCYTES ABSOLUTE AUTO 0.81 K/mm3 (0.16-1.47); MONOCYTES PERCENT AUTO 6 % (4-13); Mean Corpuscular HGB Conc 34.4 g/dL (31.5-36.5); Mean Corpuscular Volume 87 fL (80-100); Mean Platelet Volume 8.9 fL (9.1-12.4); NEUTROPHILS ABSOLUTE AUTO 9.89 K/mm3 (1.96-9.15); NEUTROPHILS PERCENT AUTO 74 % (41-73); Platelet Count 271 K/mm3 (150-400); RDW Standard Deviation 41.5 fL (35.1-46.3); Red Blood Cell Count 4.84 M/mm3 (3.80-5.20); White Blood Cell Count 13.34 K/mm3 (4.00-11.30)
[2021-01-15 12:13] LABS: Alanine Aminotransfer (ALT/SGP 39 U/L (12-78); Albumin, Blood 3.1 g/dL (3.4-5.0); Albumin/Globulin Ratio 0.8 (0.8-1.8); Alk Phos 75 U/L (50-136); Anion Gap 7 mmol/L (6-16); Aspartate Aminotrans (AST/SGOT 17 U/L (12-37); Bilirubin, Total 0.7 mg/dL (0.1-1.0); Blood Urea Nitrogen 18 mg/dL (8-24); Bun/Creatinine Ratio 33.4 (12.0-20.0); CO2, Blood 22 mmol/L (21-32); Chloride, Blood 110 mmol/L (98-108); Creatinine, Blood 0.54 mg/dL (0.40-1.00); Globulin, Blood 4.1 g/dL (2.2-4.0); Glomerular Filtration Rate >60 (60-); Glucose, Blood 96 mg/dL (70-99); Sodium, Blood 139 mmol/L (136-145); Total Protein, Blood 7.2 g/dL (6.4-8.2)
== END 2021-01-15 16:55 | disposition home or self-care (01) ==
LOC: ER 10:35
PROVIDERS: Emergency Medicine
DX: N99.522 Malfunction of incontinent external stoma of urinary tract (principal); K21.9 Gastro-esophageal reflux disease without esophagitis; F41.9 Anxiety disorder, unspecified; Z79.899 Other long term (current) drug therapy
CPT/HCPCS: 36415; 76770; 80053; 85025; 99284-25; A9270

== ENCOUNTER → 2021-02-09 | Outpatient (CLI) | payer OTHER ==
[2021-02-09 14:01] LABS: Hematocrit 42.5 % (33.0-51.0); Mean Corpuscular HGB 29.5 pg (26.0-34.0); Mean Corpuscular HGB Conc 32.9 g/dL (31.5-36.5); Mean Corpuscular Volume 90 fL (80-100); Platelet Count 284 K/mm3 (150-400); RDW Coefficient Variation 13.1 % (11.7-14.2); RDW Standard Deviation 42.8 fL (35.1-46.3); Red Blood Cell Count 4.74 M/mm3 (3.80-5.20); White Blood Cell Count 4.58 K/mm3 (4.00-11.30)
[2021-02-09 15:21] LABS: Anion Gap 6 mmol/L (6-16); Blood Urea Nitrogen 18 mg/dL (8-24); Bun/Creatinine Ratio 28.8 (12.0-20.0); CO2, Blood 24 mmol/L (21-32); Calcium, Blood 9.6 mg/dL (8.5-10.1); Chloride, Blood 109 mmol/L (98-108); Creatinine, Blood 0.62 mg/dL (0.40-1.00); Glomerular Filtration Rate >60 (60-); Glucose, Blood 74 mg/dL (70-99); Potassium, Blood 4.2 mmol/L (3.5-5.5); Sodium, Blood 139 mmol/L (136-145)
== END ==
LOC: EDSTATUS 10:42 → LAB RH 13:14
PROVIDERS: Internal Medicine
DX: G80.8 Other cerebral palsy (principal); D64.9 Anemia, unspecified
CPT/HCPCS: 80048; 85027